=== PATIENT | male | born 1950 | race Caucasian/White ===

== ENCOUNTER 2020-09-13 05:33 | Outpatient (RCR) | payer MEDICARE ==
[~2020-09-13] VITALS: Ht 167.7 cm; Wt 105.5 kg
[~2020-09-13 05:33] MED LIST: AMLO-251 PO; ASPI-808 PO; GLIP10TA13 PO; INSU100I29 SQ; LISI40TA PO; PRAV20TA3 PO; SITA1TBM4 PO; TERA1CAP3 PO; TRIA1TAB3 PO; WARF6TAB49 PO
== END 2020-09-13 09:45 | disposition home or self-care (01) ==
LOC: PREOP 05:33
PROVIDERS: ATTEND Specialist
DX: Z01.818 Encounter for other preprocedural examination (principal); H25.11 Age-related nuclear cataract, right eye; Z20.828 Contact with and (suspected) exposure to other viral communicable diseases
CPT/HCPCS: 87635

== ENCOUNTER 2020-09-14 08:43 | Day surgery (SDC) | payer MEDICARE ==
[~2020-09-14] VITALS: Ht 167.7 cm; Wt 105.5 kg
[2020-09-14 09:25] VITALS: BP 184/101
[2020-09-14] MEDS ORDERED: LIDOCAINE PF 1% 2 ML VIAL IR PRN (09:30)
[2020-09-14] MEDS ORDERED: POVIDONE (BETADINE) OPHTH SOLN 5% 30 ML OP ONE (09:30)
[2020-09-14] MEDS ORDERED: MOXIFLOXACIN OPHTH SOLN 5 MG/ML 0.3 ML SYRINGE OP ONE (09:30)
[2020-09-14] MEDS ORDERED: TIMOLOL MALEATE 0.5% 5 ML (TIMOPTIC) BTL OU PRN (09:30)
[2020-09-14] MEDS: TETRACAINE 0.5% OPHTH SOLN 4 ML BTL (SINGLE DOSE ONLY) OU PRN ×4 (09:31→10:07)
[2020-09-14] MEDS: PHENYLEPHRINE 10% OPHTH (NEO-SYN) 5 ML BTL OU SCH ×3 (09:46→10:07)
[2020-09-14] MEDS: TROPICAMIDE 1% OPH SOLN (MYDRIACYL) 15 ML BTL OP SCH ×3 (09:46→10:07)
--- NOTE | 2020-09-14 10:19 | Ophthalmologist Pre-Op Note ---
Pre-Operative Progress Note H&P Reviewed The H&P was reviewed, patient examined and no changes noted. Date H&P Reviewed: Sep 14, 2020 Time H&P Reviewed: 10:19 Pre-Op Dx Cataract, Right Eye JAIME CORTES MD Sep 14, 2020 10:19
[2020-09-14] MEDS ORDERED: MIDAZOLAM 2 MG/2 ML (VERSED) VIAL ONE (10:20)
--- NOTE | 2020-09-14 10:41 | Ophthalmology Operative Report ---
Cataract removal/placement IOL PREOPERATIVE DIAGNOSIS: Cataract Right Eye POSTOPERATIVE DIAGNOSIS: Cataract Right Eye PROCEDURE: Cataract removal and placement of posterior chamber implant, right eye SURGEON: Vahe Cortes ANESTHESIA: Topical with sedation COMPLICATIONS: None ESTIMATED BLOOD LOSS: Minimal DESCRIPTION OF PROCEDURE: After proper informed consent was obtained, the patient, a 69 male, was taken to the Operating Room and the right eye was anesthetized with tetracaine. The right eye was then prepped and draped in the usual manner. A wire lid speculum was placed. A paracentesis was made at the left hand position. Preservative free lidocaine was injected into the anterior chamber followed by viscoelastic. A clear corneal incision was made in the temporal position. A capsulorrhexis was preformed and the central nuclear and cortical material were removed. The posterior capsule was polished and Roland 21.0 AU00T0 IOL was placed into the capsular bag. The residual viscoelastic was aspirated and balanced saline solution was injected into the anterior chamber. Moxifloxacin was injected into the anterior chamber. The wound was checked and found to be water tight. The patient tolerated the procedure well without complications. VAHE CORTES MD Sep 14, 2020 10:41
[2020-09-14 10:50] VITALS: BP 172/100
[2020-09-14] MEDS ORDERED: acetaZOLAMIDE ER 500 MG CAP (DIAMOX SEQUELS) PO ONE (11:00)
== END 2020-09-14 10:50 | disposition home or self-care (01) ==
LOC: SDC 08:43
PROVIDERS: ATTEND Specialist
DX: H25.11 Age-related nuclear cataract, right eye (principal); I10 Essential (primary) hypertension; E11.36 Type 2 diabetes mellitus with diabetic cataract; M19.90 Unspecified osteoarthritis, unspecified site; Z79.899 Other long term (current) drug therapy; Z88.8 Allergy status to other drugs, medicaments and biological substances
CPT/HCPCS: 66984; 82962; V2632

== ENCOUNTER → 2021-10-30 | Outpatient (CLI) | payer MEDICARE ==
[~2021-10-30] MED LIST changes: -LISI40TA PO; +LISI40TA9 PO
--- NOTE | 2021-10-30 12:08 | Diagnostic Imaging Report ---
Indication: Cough and congestion PA and lateral chest Heart size and pulmonary vascularity are normal. Lungs are clear. There is a tiny left effusion. There is no pneumothorax. IMPRESSION: Tiny left pleural effusion Dictated by: Dictated on workstation # [id number]
== END ==
LOC: RAD FS 11:39
PROVIDERS: ATTEND Nurse Practitioner Family
DX: R05.3 Chronic cough (principal); R09.81 Nasal congestion
CPT/HCPCS: 71046

== ENCOUNTER 2021-11-10 00:45 | Inpatient (IN) | payer MEDICARE ==
[~2021-11-10] VITALS: Ht 175.3 cm; Wt 114.4 kg
[2021-11-10] MEDS ORDERED: AZITHROMYCIN INJECTION 500 MG in NS (IVPB) 250 ML IV SCH (22:45)
[2021-11-11] VITALS (7 sets, daily range): BP systolic 116–168; BP diastolic 70–100
[2021-11-11] MEDS ORDERED: AZITHROMYCIN INJECTION 500 MG/5 ML VIAL ONE (01:02)
[2021-11-11] MEDS ORDERED: NS (IVPB) 250 ML ONE (01:02)
[2021-11-11] MEDS ORDERED: 1/2 NS IV SOLUTION 1,000 ML IV ONE (01:02)
[2021-11-11] MEDS: 1/2 NS IV SOLUTION 1,000 ML IV SCH ×2 (01:07→09:02)
[2021-11-11 01:31] LABS: PHOSPHORUS 3.8 MG/DL (2.3-4.7)
[2021-11-11 01:35] LABS: MAGNESIUM 1.9 MG/DL (1.6-2.4)
[2021-11-11 01:37] LABS: BASOPHILS % (AUTO) 0 % (0-10); EOSINOPHILS % (AUTO) 0 % (0-10); HEMATOCRIT 43 % (40-54); HEMOGLOBIN 13.1 g/dL (13.3-17.7); LYMPHOCYTES # (AUTO) 0.3 10^3/uL (1.0-4.0); LYMPHOCYTES % (AUTO) 2 % (12-44); MEAN CORPUSCULAR HEMOGLOBIN 26 pg (25-34); MEAN CORPUSCULAR HGB CONC 31 g/dL (32-36); MEAN CORPUSCULAR VOLUME 85 fL (80-99); MEAN PLATELET VOLUME 10.7 fL (9.0-12.2); MONOCYTES # (AUTO) 0.1 10^3/uL (0.0-1.0); MONOCYTES % (AUTO) 1 % (0-12); NEUTROPHILS # (AUTO) 10.2 10^3/uL (1.8-7.8); NEUTROPHILS % (AUTO) 96 % (42-75); PLATELET COUNT 298 10^3/uL (130-400); WHITE BLOOD COUNT 10.7 10^3/uL (4.3-11.0)
[2021-11-11 02:05] LABS: LYMPHOCYTES % (MANUAL) 3 %; NEUTROPHILS % (MANUAL) 97 %; RBC MORPH NORMAL
--- NOTE | 2021-11-11 02:19 | Tele-ICU Progress Note ---
Progress Note 70 y/o with SOB x 4 days, productive cough x 1 wk, PCP gave abx for 1 wk, Pt is unvaccinated against COVID-19. Transferred from OSH, PCR pending. mCXR with bilateral infiltrates. ABG PCO2 63--84 1.Acute hypoxic / hypercapnic resp failure Due to COPD and Pneumonia CAP, r/o COVID pneumoni On Bipap, abx, solumedrol and BD nebs given Repeat ABG ordered. No other information available. Will view Pt via camera. Case d/w the bedside nurse. Will call with lab results. Interventions Major-Hypercarbia - evaluation and management, Hypoxemia - evaluation and management Minor-Other: CAP, COPD Annotated By: Suraj Gamez () Date: 11/11/2021 02:17 Some what lethargic but arousable to name , d/w the bedside nurse to call with any change in condition. obese , possible DAMIAN. History based on OSH records. Focused Exam Lactate Level 11/11/21 01:03: Lactic Acid Level 0.71 Height, Weight, BMI Height: '" Weight: lbs. oz. kg; BMI Method: Lactic Acid Level Laboratory Tests Test 11/11/21 01:03 Lactic Acid Level 0.71 MMOL/L (0.50-2.00) SURAJ GAMEZ MD Nov 11, 2021 02:19
[2021-11-11 02:26] LABS: ABG BASE EXCESS 8.8 MMOL/L (-2.5-2.5); ABG OXYGEN SATURATION 92 % (94-100); ABG PO2 66 MMHG (79-93); ABG TCO2 37.8 MMOL/L (21.0-31.0); ALLENS TEST YES-POS; INSPIRED O2 70%; VENTILATOR NO
[2021-11-11 02:33] LABS: ABG PCO2 77 MMHG (35-45); ABG PH 7.28 (7.37-7.43); PATIENT TEMP 36.7
[2021-11-11] MEDS ORDERED: RT-ALBUTEROL HFA 8.5 GM INHALER IH PRN (03:15)
[2021-11-11 05:51] LABS: POTASSIUM 4.7 MMOL/L (3.6-5.0)
[2021-11-11 05:52] LABS: CALCIUM 8.8 MG/DL (8.5-10.1)
[2021-11-11 05:53] LABS: TOTAL PROTEIN 7.8 GM/DL (6.4-8.2)
[2021-11-11 05:55] LABS: BILIRUBIN,TOTAL 0.6 MG/DL (0.1-1.0)
[2021-11-11 05:57] LABS: CREATININE SERUM 1.04 MG/DL (0.60-1.30)
[2021-11-11] MEDS: RT-ALBUTEROL HFA 8.5 GM INHALER IH SCH ×5 (06:56→21:51)
--- NOTE | 2021-11-11 07:08 | Diagnostic Imaging Report ---
EXAM: CHEST 1 VIEW, AP/PA ONLY INDICATION: Pneumonia. COMPARISON: 10/30/2021. FINDINGS: Low lung volumes. Increasing airspace opacities in both lungs, greater on the right. Small left pleural effusion. No pneumothorax. Heart size is obscured. No acute osseous findings. IMPRESSION: Increasing airspace opacities, greater on the right. Stable small left pleural effusion. Dictated by: Dictated on workstation # [id number]
[2021-11-11] MEDS: dexAMETHasone 6 MG TAB (DECADRON) PO SCH (09:02)
[2021-11-11] MEDS ORDERED: LOPERAMIDE 2 MG (IMODIUM) TABLET PO PRN (09:15)
[2021-11-11] MEDS ORDERED: ACETAMINOPHEN 325 MG TABLET PO PRN (09:15)
[2021-11-11] MEDS ORDERED: DOCUSATE SODIUM 100 MG (COLACE) CAP PO PRN (09:15)
[2021-11-11] MEDS ORDERED: MELATONIN 3 MG TABLET PO PRN (09:15)
[2021-11-11] MEDS ORDERED: ONDANSETRON 4 MG (ZOFRAN) ORAL DISSOLVE TAB PO PRN (09:15)
[2021-11-11] MEDS ORDERED: guaiFENesin/CODEINE (ROBITUSSIN AC) 10ML UDC PO PRN (09:15)
[2021-11-11] MEDS ORDERED: CALCIUM CARBONATE 500 MG (TUMS) TAB.CHEW PO PRN (09:15)
[2021-11-11] MEDS ORDERED: HYDROcodone/APAP 5 MG/325 MG (LORTAB) TAB PO PRN (09:15)
[2021-11-11] MEDS ORDERED: ONDANSETRON 4 MG/2 ML (SDV) Z0FRAN IVP PRN (09:15)
[2021-11-11] MEDS ORDERED: diphenhydrAMINE 25 MG TAB (BENADRYL) PO PRN (09:15)
[2021-11-11] MEDS ORDERED: ALPRAZolam 0.25 MG (XANAX) TAB PO PRN (09:15)
[2021-11-11] MEDS: ENOXAPARIN 40 MG/0.4 ML (LOVENOX) SYR SC SCH (10:35)
--- NOTE | 2021-11-11 10:37 | Tele-ICU Progress Note ---
Subjective Date Seen by a Provider: Nov 11, 2021 Time Seen by a Provider: 09:55 Sepsis Event Evaluation Height, Weight, BMI Height: '" Weight: lbs. oz. kg; 37.52 BMI Method: Focused Exam Lactate Level 11/11/21 01:03: Lactic Acid Level 0.71 Exam Exam Patient acknowledged, consented, and participated in this virtual visit which was conducted using real time audio/video Vital Signs Date Time Temp Pulse Resp B/P (MAP) Pulse Ox O2 Delivery O2 Flow Rate FiO2 11/11/21 10:15 86 22 95 45.00 11/11/21 10:00 87 9 137/84 95 NIV Bilevel 70.00 11/11/21 09:44 60.00 11/11/21 09:00 87 9 123/74 94 NIV Bilevel 70.00 11/11/21 08:00 36.4 11/11/21 08:00 89 9 131/67 95 NIV Bilevel 70.00 11/11/21 07:30 85 11/11/21 07:00 86 9 119/67 95 NIV Bilevel 70.00 11/11/21 06:56 84 16 95 70.00 11/11/21 06:00 90 9 133/97 94 NIV Bilevel 70.00 11/11/21 05:00 99 11 141/87 97 NIV Bilevel 70.00 11/11/21 04:00 92 10 133/83 100 NIV Bilevel 70.00 11/11/21 04:00 NIV Bilevel 70 11/11/21 03:02 37.0 84 94 70 11/11/21 03:00 97 11 147/94 93 NIV Bilevel 70.00 11/11/21 02:00 84 15 99/67 91 NIV Bilevel 70.00 11/11/21 01:45 84 28 98/63 91 NIV Bilevel 70.00 11/11/21 01:30 84 25 107/64 91 NIV Bilevel 70.00 11/11/21 01:15 85 29 116/70 91 NIV Bilevel 70.00 11/11/21 01:01 101 17 94 70.00 11/11/21 01:00 94 32 136/82 93 NIV Bilevel 70.00 11/11/21 01:00 92 NIV Bilevel 70 11/11/21 01:00 94 11/11/21 00:58 37.0 96 24 168/100 93 NIV Bilevel 70.00 I & O 11/11/21 07:00 Intake Total 250 ml Output Total 300 ml Balance -50 ml Height & Weight Height: '" Weight: lbs. oz. kg; 37.52 BMI Method: General Appearance: No Apparent Distress Capillary Refill: Less Than 3 Seconds Results Lab Laboratory Tests 11/11/21 01:03 Assessment/Plan Assessment/Plan (Tele-ICU Physician , Progress Note ) Available chart/ vitals / labs / Images reviewed Video assessment done using teleICU camera, rest of exam as per RN Discussed with RN , EXAM PER RN Events overnight : Afebrile FiO2 - I/O = Drips: Pressors: , hemodynamically stable Consultants: Hospital course: (11/10) , Severe Sepsis PNA , covid neg rapid (11/11) from other hospital transfer to [place] direct for PNA on Bipap A/P Acute resp failure - NIPPV to cont - BIPAP 18/8 65% , rr 16 [id number] PIP 18 MV 11L --> abg worse probably due to transport on NRM --> change setting to increase pressutre to 18/09 - follow abg - ddimer negative - low sup for PE - stop IVF AECOPD ? - br-dilators -on decadrone 6 po qd PNA = neg covid -Ceftriiaxone , Z max DM - ISS h/o AC with coumadine as per previous chart - ? indications ( sinus now ) - will check INR - Lines : (Central Line Necessity Reviewed) Brown: OG: Nutrition: Analgesia: Anxiety/ delirium VTE Prophylaxis: mercedes 40 Stress Ulcer Prophylaxis: po Plans in collaboration with bedside consultants and IM MDs. Discussed with RN to reach out if any questions or concerns A total of 33 minutes of critical care time was devoted to this patient today, required to treat and/or prevent further deterioration of critical care condition ( as above) . JJ SPENCE MD Nov 11, 2021 10:37
[2021-11-11] MEDS: inSUlin ASPART (NovoLOG) 1 UNIT/0.01 ML (CHARGE PER UNIT) SC SCH ×3 (10:44→20:21)
--- NOTE | 2021-11-11 11:29 | History & Physical-Hospitalist ---
HARJIT MCKEON 11/11/21 1129: History of Present Illness HPI/Chief Complaint Chief complaint: Rae is a 70yo M who was sent to the hospital this morning by his PCP. He has had a productive cough the past week and shortness of breath the past 4 days. Was treated with oral Abx for about a week with no improvement. He is not vaccinated against COVID and a PCR test is pending currently. A chest X-ray showed bilateral infiltrates. Was admitted for respiratory failure most likely due to COPD exacerbation caused by pneumonia. HPI: PMH includes COPD, diabetes, HTN, high cholesterol, and BPH. Home medications are amlodipine, aspirin, glipizide, insulin detemir, lisinopril, pravastatin, sitagliptin, terazosin, hydochlorothiazide, and warfarin. Patient was not verbally responsive today. Nurse reports the only way to wake her patient is to do a sternal rub several times. The only thing the patient has waken up for was to take his medications. Patient on BIPAP currently. Source: RN/MD, EMS notes reviewed Date Seen 11/11/21 Time Seen by a Provider: 09:30 Attending Physician Tatum Frazier DO [facility] Referring Physician Date of Admission Nov 11, 2021 at 00:46 Home Medications & Allergies Home Medications Reviewed patient Home Medication Reconciliation performed by pharmacy medication reconciliations process maintenance technician and/or nursing. Patients Allergies have been reviewed. Allergies Allergies Coded Allergies rosuvastatin (Verified Allergy, Unknown, 09/12/20) Past Kjymajx-Hapoxy-Zpdjqy Hx Patient Social History Smoking Status: Unknown if Ever Smoked Smokeless Tobacco Frequency: Unknown if Ever Used Use of E-Cig and/or Vaping dev: Unable to obtain Use of E-Cig and/or Vaping David: Unknown if Ever Used Substance use?: Unable to obtain Alcohol Use?: Unable to obtain Pt feels they are or have been: Unable to obtain Current Status Advance Directives: Unable to obtain Communicates: Verbally Primary Language: Upper Sorbian Preferred Spoken Language: Upper Sorbian Is interpretation needed?: No Past Medical History COPD High Cholesterol, Hypertension Benign Prostatic Hyperpl Diabetes, Insulin dep Review of Systems ROS-Unable to Obtain: Patient did not verbally respond during the interview Physical Exam Physical Exam Vital Signs Vital Signs - First Documented 11/11/21 11/11/21 00:58 01:00 Temp 37.0 Pulse 96 Resp 24 B/P (MAP) 168/100 Pulse Ox 93 O2 Delivery NIV Bilevel O2 Flow Rate 70.00 FiO2 70 Capillary Refill : Less Than 3 Seconds Height, Weight, BMI Height: '" Weight: lbs. oz. kg; 37.52 BMI Method: General Appearance: No Apparent Distress, WD/WN Neck: Normal Inspection Respiratory: Chest Non Tender, Lungs Clear Cardiovascular: Regular Rate, Rhythm, No Murmur Gastrointestinal: Normal Bowel Sounds, No Organomegaly Extremity: Normal Capillary Refill, Pedal Edema (Bilateral) Neurologic/Psychiatric: Other (only responsive to sternal rub) Skin: Normal Color, Warm/Dry Lymphatic: No Adenopathy Results Results/Procedures Labs Laboratory Tests 11/11/21 01:03 Patient resulted labs reviewed. Assessment/Plan Admission Diagnosis Admission Status: Inpatient Order (span 2 midnights) Reason for Inpatient Admission: COPD exacerbation due to pneumonia with respiratory failure Assessment and Plan Assessment: COPD exacerbation due to pneumonia Pneumonia Respiratory failure Diabetes HTN High cholesterol BPH Plan: COPD exacerbation due to pneumonia - Continue to take Albuterol - Continue to take Dexamethasone - D-dimer will be assessed Pneumonia - IV Azithromycin treatment will end 11/15 - IV Ceftriaxone added to cover community acquired pneumonia Respiratory failure - Patient on BIPAP - Pending PCR will rule out COVID - Repeat ABG will be done Diabetes - Sliding scale insulin aspart started DVT prophylaxis - Enoxaparin Ulcer prophylaxis - Pantoprazole Diagnosis/Problems Diagnosis/Problems (1) Respiratory failure (2) COPD exacerbation (3) Diabetes (4) Hypertension (5) High cholesterol (6) BPH (benign prostatic hyperplasia) (7) Pneumonia TATUM FRAZIER DO 11/12/21 0523: History of Present Illness HPI/Chief Complaint CC: Acute chronic respiratory failure HPI: 70 yr old WM who had been sick for a couple of weeks presumably from Covid. He presented to [place] with acute hypoxic respiratory failure. He is now BiPAP dependent. PCR is pending for Covid. Community acquired pneumonia was started with Azithromycin and Rocephin. ABG is 7./. Overall he will be monitored closely for any need for intubation. Source: RN/MD, EMS notes reviewed Past Rpqvbkn-Trltxm-Nodnqs Hx Patient Social History Marrital Status: Employed/Student: retired Use of E-Cig and/or Vaping David: Unknown if Ever Used Past Medical History COPD High Cholesterol, Hypertension Benign Prostatic Hyperpl Diabetes, Insulin dep Review of Systems Constitutional: see HPI Physical Exam Physical Exam General Appearance: No Apparent Distress, Chronically ill, Obese, Other (BiPAP intact) Respiratory: Lungs Clear, Normal Breath Sounds Cardiovascular: Regular Rate, Rhythm Neurologic/Psychiatric: Alert, Oriented x3 Assessment/Plan Admission Diagnosis Assessment: Community-acquired pneumonia Acute hypoxic respiratory failure BiPAP dependence Hypercapnia Hypertension Plan: Antibiotics BiPAP Monitor ABG Admission Status: Inpatient Order (span 2 midnights) Reason for Inpatient Admission: Respiratory failure Supervisory-Addendum Brief Verification & Attestation Participated in pt care: history, MDM, physical Personally performed: exam, history, MDM, supervision of care Care discussed with: Medical Student Procedures: n/a Results interpretation: Verified all documentation Verification and Attestation of Medical Student E/M Service A medical student performed and documented this service in my presence. I reviewed and verified all information documented by the medical student and made modifications to such information, when appropriate. I personally performed the physical exam and medical decision making. Tatum Frazier, Nov 12, 2021,05:23 HARJIT MCKEON Nov 11, 2021 11:29 TATUM FRAZIER DO Nov 12, 2021 05:23
--- NOTE | 2021-11-11 12:30 | Progress Note ---
Subjective Date Seen by a Provider: Nov 11, 2021 Time Seen by a Provider: 12:20 Subjective/Events-last exam Pt a little more alert compared to reports this morning from nursing staff - can't unstand pt with BiPAP on but he is able to response yes/no and give relevant hand-gestures to my questions. COVID PCR still pendings. Review of Systems General: No Chills, No Night Sweats Pulmonary: Dyspnea, Pleuritic Chest Pain Cardiovascular: Chest Pain ('a little bit'); No: Edema, Lt Headedness Gastrointestinal: No: Nausea, Vomiting Focused Exam Lactate Level 11/11/21 01:03: Lactic Acid Level 0.71 Objective Exam Last Set of Vital Signs Vital Signs Date Time Temp Pulse Resp B/P (MAP) Pulse Ox O2 Delivery O2 Flow Rate FiO2 11/11/21 12:00 84 23 107/63 91 NIV Bilevel 70.00 11/11/21 08:00 36.4 11/11/21 04:00 70 Capillary Refill : Less Than 3 Seconds General: Alert, Cooperative, No Acute Distress HEENT: EOMI, Mucous Memb Moist/[place] Lungs: Other (pt has restricted air movement, little bit of wheezing, no crackles ) Heart: Regular Rate, No Murmurs Abdomen: Normal Bowel Sounds, Soft Extremities: No Clubbing, No Cyanosis, Normal Pulses Results Lab Laboratory Tests 11/11/21 01:03: White Blood Count 10.7, Red Blood Count 4.99, Hemoglobin 13.1L, Hematocrit 43, Mean Corpuscular Volume 85, Mean Corpuscular Hemoglobin 26, Mean Corpuscular Hemoglobin Concent 31L, Red Cell Distribution Width 14.5, Platelet Count 298, Mean Platelet Volume 10.7, Immature Granulocyte % (Auto) 1, Neutrophils (%) (Auto) 96H, Lymphocytes (%) (Auto) 2L, Monocytes (%) (Auto) 1, Eosinophils (%) (Auto) 0, Basophils (%) (Auto) 0, Neutrophils # (Auto) 10.2H, Lymphocytes # (Auto) 0.3L, Monocytes # (Auto) 0.1, Eosinophils # (Auto) 0.0, Basophils # (A uto) 0.0, Immature Granulocyte # (Auto) 0.1, Neutrophils % (Manual) 97, Lymphocytes % (Manual) 3, Blood Morphology Comment NORMAL, D-Dimer <= 0.27, Sodium Level 138, Potassium Level 4.7, Chloride Level 97L, Carbon Dioxide Level 24, Anion Gap 17H, Blood Urea Nitrogen 19H, Creatinine 1.04, Estimat Glomerular Filtration Rate 78, BUN/Creatinine Ratio 18, Glucose Level 268H, Lactic Acid Level 0.71, Calcium Level 8.8, Corrected Calcium 8.8, Phosphorus Level 3.8, Magnesium Level 1.9, Total Bilirubin 0.6, Aspartate Amino Transf (AST/SGOT) 16, Alanine Aminotransferase (ALT/SGPT) 20, Alkaline Phosphatase 60, Total Protein 7.8, Albumin 4.0 11/11/21 01:08: Glucometer 250H 11/11/21 02:20: Blood Gas Puncture Site LEFT RADIAL, Blood Gas Patient Temperature 36.7, Arterial Blood pH 7.28*L, Arterial Blood Partial Pressure CO2 77*H, Arterial Blood Partial Pressure O2 66L, Arterial Blood HCO3 35H, Arterial Blood Total CO2 37.8H, Arterial Blood Oxygen Saturation 92L, Arterial Blood Base Excess 8.8H, [place]ano Test YES-POS, Blood Gas Ventilator Setting NO, Blood Gas Inspired Oxygen 70% 11/11/21 06:07: Glucometer 290H 11/11/21 10:40: Glucometer 212H Assessment/Plan Assessment/Plan Assess & Plan/Chief Complaint Acute hypoxic and hypercapnic respiratory failure COPD (no baseline O2 req) Etiology: COPD exacerbation from bacterial PNA Vs Covid-19 PNA. 11/11 CXR showes b/l infiltrates Pt has not recieved COVID or flu vaccines. ABG apon arrival: 7.25/77/66/35 CVD rapid test neg, PCR still pending - airborne precautions currently. BiPAP settings changes from 18/8 65% to 22/12 65% this am. Repeat ABG. Ceftriaxone + azithromycin (Day 1) s/p solumedrol in ER, on 6mg QD decadron currently. Warfarin listed in ambulatory med list - unknown why? PT/INR ordered. IDDM HTN SSI and accuchecks GI ppx: start 20 pepcid DVT ppx: 40 lovenox. Lines and tubes: PIV + Brown cath in place. SONY CARCAMO MED STUDENT Nov 11, 2021 12:30
[2021-11-11] MEDS ORDERED: WRF1T PO (13:29)
[2021-11-11] MEDS ORDERED: WARF7.5T3 PO (13:29)
[2021-11-11] MEDS ORDERED: ALBU18HF2 INH (13:29)
[2021-11-11 14:24] LABS: ABG BASE EXCESS 9.8 MMOL/L (-2.5-2.5); ABG OXYGEN SATURATION 96 % (94-100); ABG PCO2 66 MMHG (35-45); ABG PH 7.35 (7.37-7.43); ABG PO2 78 MMHG (79-93); ABG TCO2 37.6 MMOL/L (21.0-31.0); ALLENS TEST YES-POS; INSPIRED O2 70%; VENTILATOR NO
[2021-11-11 14:25] LABS: PATIENT TEMP 36.7
--- NOTE | 2021-11-11 15:54 | Pulmonary Consultation ---
History of Present Illness History of Present Illness Date Seen by Provider: Nov 11, 2021 Time Seen by Provider: 15:42 Date of Admission 70 M with COPD, PNA RLL, on IV Rocephin and azithromycin, Medrol requiring BIPAP 18/8 with 70% FiO2 last ABG a few hours ago 7. Not working hard to breathe Not coughing much, no hemoptysis rapid COVID is negative await PCR Allergies and Home Medications Allergies Coded Allergies: rosuvastatin (Verified Allergy, Unknown, 09/12/20) Home Medications Albuterol Sulfate 18 Gm Hfa.aer.ad, 2 PUFF INH Q6H PRN for SHORTNESS OF BREATH, (Reported) Amlodipine Besylate 10 Mg Tablet, 10 MG PO HS, (Reported) Aspirin 325 Mg Tablet, 325 MG PO DAILY, (Reported) Glipizide 10 Mg Tablet, 10 MG PO DAILY, (Reported) Lisinopril 40 Mg Tablet, 40 MG PO HS, (Reported) Pravastatin Sodium 20 Mg Tablet, 20 MG PO HS, (Reported) Sitagliptin Phos/Metformin HCl 1 Each Tbmp.24hr, 2 EACH PO HS, (Reported) Terazosin HCl 1 Mg Capsule, 1 MG PO HS, (Reported) Triamterene/Hydrochlorothiazid 1 Each Tablet, 1 EACH PO DAILY, (Reported) Warfarin Sodium 1 Mg Tablet, 1 MG PO HS, (Reported) TAKES 1MG +7.5MG TOGETHER TO EQUAL 8.5MG Warfarin Sodium 7.5 Mg Tablet, 7.5 MG PO HS, (Reported) TAKES 1MG +7.5MG TOGETHER TO EQUAL 8.5MG Past Medical/Social/Family Hx Patient Social History Smoking Status: Unknown if Ever Smoked Smokeless Tobacco Frequency: Unknown if Ever Used Use of E-Cig and/or Vaping dev: Unable to obtain E-Cig and/or Vaping Freq: Unknown if Ever Used Substance use?: Unable to obtain Alcohol Use?: Unable to obtain Pt stated abuse/neglect: Unable to obtain Immunizations Up To Date Influenza Vaccine Up-to-Date: No; Not Current Current Status Advance Directives: Unable to obtain Communicates: Verbally Primary Language: Palauan Preferred Spoken Language: Palauan Is interpretation needed?: No Review of Systems Constitutional: see HPI EENTM: see HPI Respiratory: see HPI Cardiovascular: see HPI Gastrointestinal: see HPI Genitourinary: see HPI Musculoskeletal: see HPI Skin: see HPI Psychiatric/Neurological: See HPI Sepsis Event Evaluation Height, Weight, BMI Height: '" Weight: lbs. oz. kg; 37.52 BMI Method: Exam Exam Patient acknowledged, consented, and participated in this virtual visit which was conducted using real time audio/video Vital Signs Date Time Temp Pulse Resp B/P (MAP) Pulse Ox O2 Delivery O2 Flow Rate FiO2 11/11/21 14:59 81 22 96 35.00 11/11/21 14:00 45.00 11/11/21 14:00 90 23 193/182 94 NIV Bilevel 70.00 11/11/21 13:00 93 23 116/95 91 NIV Bilevel 70.00 11/11/21 13:00 93 11/11/21 12:00 84 23 107/63 91 NIV Bilevel 70.00 11/11/21 12:00 36.7 11/11/21 11:00 90 16 120/67 93 NIV Bilevel 70.00 11/11/21 10:15 86 22 95 45.00 11/11/21 10:00 87 9 137/84 95 NIV Bilevel 70.00 11/11/21 09:44 60.00 11/11/21 09:00 87 9 123/74 94 NIV Bilevel 70.00 11/11/21 08:00 36.4 11/11/21 08:00 89 9 131/67 95 NIV Bilevel 70.00 11/11/21 07:30 85 11/11/21 07:00 86 9 119/67 95 NIV Bilevel 70.00 11/11/21 06:56 84 16 95 70.00 11/11/21 06:00 90 9 133/97 94 NIV Bilevel 70.00 11/11/21 05:00 99 11 141/87 97 NIV Bilevel 70.00 11/11/21 04:00 92 10 133/83 100 NIV Bilevel 70.00 11/11/21 04:00 NIV Bilevel 70 11/11/21 03:02 37.0 84 94 70 11/11/21 03:00 97 11 147/94 93 NIV Bilevel 70.00 11/11/21 02:00 84 15 99/67 91 NIV Bilevel 70.00 11/11/21 01:45 84 28 98/63 91 NIV Bilevel 70.00 11/11/21 01:30 84 25 107/64 91 NIV Bilevel 70.00 11/11/21 01:15 85 29 116/70 91 NIV Bilevel 70.00 11/11/21 01:01 101 17 94 70.00 11/11/21 01:00 94 32 136/82 93 NIV Bilevel 70.00 11/11/21 01:00 92 NIV Bilevel 70 11/11/21 01:00 94 11/11/21 00:58 37.0 96 24 168/100 93 NIV Bilevel 70.00 I & O 11/11/21 07:00 Intake Total 250 ml Output Total 300 ml Balance -50 ml Height & Weight Height: '" Weight: lbs. oz. kg; 37.52 BMI Method: General Appearance: No Apparent Distress, WD/WN Neck: Normal Inspection Respiratory: Chest Non Tender, Lungs Clear, Decreased Breath Sounds (very decreased BS) Cardiovascular: Regular Rate, Rhythm, No Murmur Capillary Refill: Less Than 3 Seconds Gastrointestinal: normal bowel sounds (mild distensionKeysto) Extremity: Normal Capillary Refill, Pedal Edema (Bilateral+2) Neurologic/Psychiatric: Other (only responsive to sternal rub) Skin: Normal Color, Warm/Dry Lymphatic: No Adenopathy Results Lab Laboratory Tests 11/11/21 01:03 Assessment/Plan Assessment/Plan AECOPD, PNA, will continue abx and steroids, can switch to vapotherm since pCO2 is better Critical Care: Critically Ill Patient Time spent with patient (mins): 25 DIANDRA WALDEN MD Nov 11, 2021 15:54
[2021-11-11] MEDS: AZITHROMYCIN INJECTION 500 MG in NS (IVPB) 250 ML IV SCH (20:22)
[2021-11-11] MEDS: SENNA W/DOCUSATE (SENOKOT S) TABLET PO SCH (20:22)
[2021-11-11] MEDS: cefTRIAXone 1 GM PRE-MIX 50 ML IV SCH (20:22)
[2021-11-12 02:58] VITALS: BP 130/79
[2021-11-12] MEDS: RT-ALBUTEROL HFA 8.5 GM INHALER IH SCH ×6 (02:58→22:39)
[2021-11-12 05:11] LABS: BASOPHILS % (AUTO) 0 % (0-10); EOSINOPHILS % (AUTO) 0 % (0-10); HEMATOCRIT 40 % (40-54); HEMOGLOBIN 12.2 g/dL (13.3-17.7); LYMPHOCYTES # (AUTO) 0.9 10^3/uL (1.0-4.0); LYMPHOCYTES % (AUTO) 9 % (12-44); MEAN CORPUSCULAR HEMOGLOBIN 26 pg (25-34); MEAN CORPUSCULAR HGB CONC 31 g/dL (32-36); MEAN CORPUSCULAR VOLUME 86 fL (80-99); MEAN PLATELET VOLUME 10.8 fL (9.0-12.2); MONOCYTES # (AUTO) 0.8 10^3/uL (0.0-1.0); MONOCYTES % (AUTO) 8 % (0-12); NEUTROPHILS # (AUTO) 8.3 10^3/uL (1.8-7.8); NEUTROPHILS % (AUTO) 82 % (42-75); PLATELET COUNT 320 10^3/uL (130-400); WHITE BLOOD COUNT 10.1 10^3/uL (4.3-11.0)
[2021-11-12 05:18] LABS: ALBUMIN 3.3 GM/DL (3.2-4.5)
[2021-11-12 05:19] LABS: POTASSIUM 4.1 MMOL/L (3.6-5.0)
[2021-11-12 05:20] LABS: CALCIUM 8.4 MG/DL (8.5-10.1)
[2021-11-12 05:21] LABS: TOTAL PROTEIN 6.6 GM/DL (6.4-8.2)
[2021-11-12 05:23] LABS: BILIRUBIN,TOTAL 0.4 MG/DL (0.1-1.0)
[2021-11-12 05:24] LABS: PHOSPHORUS 2.6 MG/DL (2.3-4.7)
[2021-11-12 05:25] LABS: CREATININE SERUM 1.08 MG/DL (0.60-1.30)
[2021-11-12 05:27] LABS: MAGNESIUM 2.1 MG/DL (1.6-2.4)
[2021-11-12 05:33] LABS: INR 1.5 (0.8-1.4); PROTHROMBIN TIME PATIENT 18.5 SEC (12.2-14.7)
[2021-11-12] MEDS: inSUlin ASPART (NovoLOG) 1 UNIT/0.01 ML (CHARGE PER UNIT) SC SCH ×5 (05:51→21:23)
[2021-11-12] MEDS: dexAMETHasone 6 MG TAB (DECADRON) PO SCH (06:28)
[2021-11-12 07:21] VITALS: BP 127/84
[2021-11-12] MEDS: ENOXAPARIN 40 MG/0.4 ML (LOVENOX) SYR SC SCH (08:27)
[2021-11-12] MEDS: SENNA W/DOCUSATE (SENOKOT S) TABLET PO SCH ×2 (09:00→20:14)
--- NOTE | 2021-11-12 11:03 | Progress Note - Hospitalist ---
HARJIT MCKEON 11/12/21 1103: Subjective HPI/CC On Admission Date Seen by Provider: Nov 12, 2021 Time Seen by Provider: 09:15 CC: Acute chronic respiratory failure HPI: 70 yr old WM who had been sick for a couple of weeks presumably from Covid. He presented to [facility] with acute hypoxic respiratory failure. He is now BiPAP dependent. PCR is pending for Covid. Community acquired pneumonia was started with Azithromycin and Rocephin. ABG is 7.28/77/66. Overall he will be monitored closely for any need for intubation. Subjective/Events-last exam Rae was awake and talking during the interview today. Did not have any concerns or questions. Stated that he was feeling much better today. Tried vapotherm because his CO2 levels had improved but he felt that vapotherm was uncomfortable and preferred using BIPAP. BIPAP settings today are 22/12 35%. His COVID PCR test came back negative and he was taken out of isolation. Patient was asked why he is on Warfarin and he stated it is because he had a brain clot years ago. INR was done and came back 1.5. Review of Systems General: No Chills; Fatigue HEENT: No Head Aches, No Visual Changes Pulmonary: No Cough Cardiovascular: No: Chest Pain, Palpitations Gastrointestinal: No: Nausea, Vomiting, Diarrhea, Constipation Genitourinary: No Dysuria Neurological: Weakness Focused Exam Lactate Level 11/11/21 01:03: Lactic Acid Level 0.71 Objective Exam Vital Signs Vital Signs Date Time Temp Pulse Resp B/P (MAP) Pulse Ox O2 Delivery O2 Flow Rate FiO2 11/12/21 11:22 73 22 94 35.00 11/12/21 10:00 143/99 NIV Bilevel 11/12/21 08:00 36.0 11/12/21 04:00 35 Capillary Refill : Less Than 3 Seconds General Appearance: No Apparent Distress, WD/WN HEENT: PERRL/EOMI Neck: Full Range of Motion, Normal Inspection, Non Tender, Supple Respiratory: Chest Non Tender, Lungs Clear, Normal Breath Sounds, No Accessory Muscle Use, No Respiratory Distress Cardiovascular: Regular Rate, Rhythm, No Gallop, No JVD, No Murmur, Normal Peripheral Pulses Gastrointestinal: Normal Bowel Sounds, No Organomegaly, No Pulsatile Mass, Non Tender, Soft Extremity: Normal Capillary Refill, Normal Inspection, Normal Range of Motion, Non Tender, Pedal Edema Neurologic/Psychiatric: Alert, Oriented x3, Normal Mood/Affect Skin: Normal Color, Warm/Dry Results/Procedures Lab Laboratory Tests 11/12/21 04:33 Patient resulted labs reviewed. Assessment/Plan Assessment and Plan Assess & Plan/Chief Complaint Assessment: COPD exacerbation due to pneumonia Pneumonia Respiratory failure Diabetes HTN High cholesterol BPH Plan: COPD exacerbation due to pneumonia - Continue to take Albuterol - Continue to take Dexamethasone - D-dimer was WNL - Patient stable and able to be transferred to the medical-surgical unit Pneumonia - Day 2 of IV Azithromycin and treatment will end 11/15 - Day 2 IV Ceftriaxone and treatment will end 11/16 Respiratory failure - Patient on BIPAP 18/09 35% - COVID has been ruled out as a cause - ABG improved 7.35 - Patient is assumed to have DAMIAN, will need to have a sleep study done Diabetes - Sliding scale insulin aspart - Glipizide restarted from home medications HTN - Hydrochlorothiazide restarted from home medications - Lisinopril restarted from home medications - Amlodipine restarted from home medications High cholesterol - Simvastatin restarted from home medications BPH -Terazosin restarted from home medications DVT prophylaxis - Enoxaparin - Warfarin restarted from home medications Ulcer prophylaxis - Pantoprazole Diagnosis/Problems Diagnosis/Problems (1) Respiratory failure (2) COPD exacerbation (3) Diabetes (4) Hypertension (5) High cholesterol (6) BPH (benign prostatic hyperplasia) (7) Pneumonia TATUM DON DO 11/13/21 0549: Subjective Subjective/Events-last exam Pt is doing a lot better Transferring to the floor BiPAP dependent Diet with Ensure will be started Covid was negative so pt was taken out of isolation Review of Systems General: Fatigue Pulmonary: Dyspnea Objective Exam General Appearance: No Apparent Distress, WD/WN, Anxious, Chronically ill, Obese Respiratory: Lungs Clear, Normal Breath Sounds Cardiovascular: Regular Rate, Rhythm Neurologic/Psychiatric: Alert, Oriented x3 Assessment/Plan Assessment and Plan Assess & Plan/Chief Complaint BiPAP dependent Moved to floor Supervisory-Addendum Brief Verification & Attestation Participated in pt care: history, MDM, physical Personally performed: exam, history, MDM, supervision of care Care discussed with: Medical Student Procedures: n/a Results interpretation: Verified all documentation Verification and Attestation of Medical Student E/M Service A medical student performed and documented this service in my presence. I reviewed and verified all information documented by the medical student and made modifications to such information, when appropriate. I personally performed the physical exam and medical decision making. Tatum Don, Nov 13, 2021,05:49 HARJIT MCKEON Nov 12, 2021 11:03 TATUM DON DO Nov 13, 2021 05:49
[2021-11-12 11:22] VITALS: BP 142/91
--- NOTE | 2021-11-12 12:21 | Tele-ICU Progress Note ---
Subjective Date Seen by a Provider: Nov 12, 2021 Time Seen by a Provider: 12:20 Sepsis Event Evaluation Height, Weight, BMI Height: '" Weight: lbs. oz. kg; 37.52 BMI Method: Focused Exam Lactate Level 11/11/21 01:03: Lactic Acid Level 0.71 Exam Exam Patient acknowledged, consented, and participated in this virtual visit which was conducted using real time audio/video Vital Signs Date Time Temp Pulse Resp B/P (MAP) Pulse Ox O2 Delivery O2 Flow Rate FiO2 11/12/21 11:22 73 22 94 35.00 11/12/21 10:00 71 19 143/99 95 NIV Bilevel 35.00 11/12/21 09:00 70 19 141/90 93 NIV Bilevel 35.00 11/12/21 08:00 77 10 137/89 93 NIV Bilevel 35.00 11/12/21 08:00 36.0 11/12/21 07:21 75 22 92 35.00 11/12/21 07:00 73 127/84 93 NIV Bilevel 35.00 11/12/21 07:00 73 11/12/21 06:00 73 126/83 91 NIV Bilevel 35.00 11/12/21 05:00 76 8 141/93 93 NIV Bilevel 35.00 11/12/21 04:00 74 12 130/79 91 NIV Bilevel 35.00 11/12/21 04:00 NIV Bilevel 35 11/12/21 04:00 36.1 11/12/21 03:00 73 132/84 93 NIV Bilevel 35.00 11/12/21 02:58 73 20 93 35.00 11/12/21 02:00 74 18 130/79 92 NIV Bilevel 35.00 11/12/21 01:00 76 11/12/21 01:00 66 9 125/77 93 NIV Bilevel 35.00 11/12/21 00:00 36.4 NIV Bilevel 35.00 11/12/21 00:00 73 21 121/75 93 NIV Bilevel 35.00 11/11/21 23:59 NIV Bilevel 35 11/11/21 23:00 81 20 125/82 93 NIV Bilevel 35.00 11/11/21 22:00 81 21 129/83 94 NIV Bilevel 35.00 11/11/21 21:51 87 20 95 35.00 11/11/21 21:00 84 14 127/85 95 NIV Bilevel 35.00 11/11/21 20:23 36.2 NIV Bilevel 35.00 11/11/21 20:00 80 20 133/84 93 NIV Bilevel 45.00 11/11/21 20:00 NIV Bilevel 35 11/11/21 19:00 85 12 136/93 93 NIV Bilevel 45.00 11/11/21 19:00 85 11/11/21 18:45 85 20 95 35.00 11/11/21 18:00 88 17 149/87 93 NIV Bilevel 45.00 11/11/21 17:21 36.4 11/11/21 17:00 87 12 141/86 94 NIV Bilevel 45.00 11/11/21 16:00 78 19 124/73 90 NIV Bilevel 45.00 11/11/21 15:41 NIV Bilevel 45 11/11/21 15:00 80 17 130/79 96 NIV Bilevel 45.00 11/11/21 14:59 81 22 96 35.00 11/11/21 14:00 45.00 11/11/21 14:00 90 23 193/182 94 NIV Bilevel 70.00 11/11/21 13:00 93 23 116/95 91 NIV Bilevel 70.00 11/11/21 13:00 93 I & O 11/12/21 07:00 Intake Total 1350 ml Output Total 675 ml Balance 675 ml Height & Weight Height: '" Weight: lbs. oz. kg; 37.52 BMI Method: General Appearance: No Apparent Distress, WD/WN HEENT: PERRL/EOMI Neck: Full Range of Motion, Normal Inspection, Non Tender, Supple Respiratory: Chest Non Tender, Lungs Clear, Normal Breath Sounds, No Accessory Muscle Use, No Respiratory Distress Cardiovascular: Regular Rate, Rhythm, No Gallop, No JVD, No Murmur, Normal Peripheral Pulses Capillary Refill: Less Than 3 Seconds Gastrointestinal: normal bowel sounds (mild distensionKeysto) Extremity: Normal Capillary Refill, Normal Inspection, Normal Range of Motion, Non Tender, Pedal Edema Neurologic/Psychiatric: Alert, Oriented x3, Normal Mood/Affect Skin: Normal Color, Warm/Dry Lymphatic: No Adenopathy Results Lab Laboratory Tests 11/11/21 01:03 11/12/21 04:33 Assessment/Plan Assessment/Plan (Tele-ICU Physician , Progress Note ) Available chart/ vitals / labs / Images reviewed Video assessment done using teleICU camera, rest of exam as per RN Discussed with RN , EXAM PER RN Events overnight : Afebrile FiO2 - 35% I/O = pos 400 Drips: Pressors: , hemodynamically stable Consultants: Hospital course: (11/10) , Severe Sepsis PNA , covid neg rapid (11/11) from other hospital transfer to [facility] direct for PNA on Bipap 18/09 70% A/P Acute resp failure - BIPAP 35% rr 22 tv 500 - on 5 l NC - ddimer negative , INR 1.5 - low susp for PE - stoped IVF 11/11 AECOPD ? - br-dilators -on decadrone 6 po qd - as per PCP PNA = neg covid rapid -Ceftriiaxone , Z max DM - ISS h/o AC with coumadine as per previous chart - ? indications ( sinus now ) - INR 1.5 Lines : (Central Line Necessity Reviewed) Brown: OG: Nutrition: Analgesia: Anxiety/ delirium VTE Prophylaxis: mercedes 40 Stress Ulcer Prophylaxis: po Plans in collaboration with bedside consultants and IM MDs. Discussed with RN to reach out if any questions or concerns A total of 31 minutes of critical care time was devoted to this patient today, required to treat and/or prevent further deterioration of critical care condition ( as above) JJ SPENCE MD Nov 12, 2021 12:20
[2021-11-12] MEDS: cefTRIAXone 1 GM PRE-MIX 50 ML IV SCH (20:02)
[2021-11-12] MEDS ORDERED: [UNRECOGNIZED DRUG - OTHER] PO SCH (21:00)
[2021-11-12] MEDS ORDERED: METFORMIN HCL PO SCH (21:00)
[2021-11-12] MEDS ORDERED: SITAGLIPTIN PHOS PO SCH (21:00)
[2021-11-12] MEDS: AZITHROMYCIN INJECTION 500 MG in NS (IVPB) 250 ML IV SCH (21:15)
[2021-11-12] MEDS: SIMvastatin 10 MG (ZOCOR) TAB PO SCH (21:17)
[2021-11-12] MEDS: warFARin 1 MG (COUMADIN) TAB PO SCH (21:17)
[2021-11-12] MEDS: warFARin 7.5 MG (COUMADIN) TAB PO SCH (21:17)
[2021-11-12] MEDS: lisINopril 40 MG (PRINIVIL) TABLET PO SCH (21:17)
[2021-11-12] MEDS: amLODIPine 10 MG (NORVASC) TAB PO SCH (21:17)
[2021-11-12] MEDS: TERAZOSIN 1 MG CAP (HYTRIN) PO SCH (21:17)
[2021-11-12 22:39] VITALS: BP 142/91
[2021-11-13 03:02] VITALS: BP 142/91
[2021-11-13] MEDS: RT-ALBUTEROL HFA 8.5 GM INHALER IH SCH ×6 (03:02→21:16)
[2021-11-13] MEDS: dexAMETHasone 6 MG TAB (DECADRON) PO SCH (06:00)
[2021-11-13] MEDS: inSUlin ASPART (NovoLOG) 1 UNIT/0.01 ML (CHARGE PER UNIT) SC SCH ×4 (06:00→20:49)
[2021-11-13 06:13] LABS: BASOPHILS % (AUTO) 0 % (0-10); EOSINOPHILS # (AUTO) 0.1 10^3/uL (0.0-0.3); EOSINOPHILS % (AUTO) 1 % (0-10); HEMATOCRIT 38 % (40-54); HEMOGLOBIN 11.3 g/dL (13.3-17.7); LYMPHOCYTES # (AUTO) 1.1 10^3/uL (1.0-4.0); LYMPHOCYTES % (AUTO) 16 % (12-44); MEAN CORPUSCULAR HEMOGLOBIN 26 pg (25-34); MEAN CORPUSCULAR HGB CONC 30 g/dL (32-36); MEAN CORPUSCULAR VOLUME 87 fL (80-99); MEAN PLATELET VOLUME 10.3 fL (9.0-12.2); MONOCYTES # (AUTO) 0.8 10^3/uL (0.0-1.0); MONOCYTES % (AUTO) 11 % (0-12); NEUTROPHILS # (AUTO) 4.9 10^3/uL (1.8-7.8); NEUTROPHILS % (AUTO) 72 % (42-75); PLATELET COUNT 293 10^3/uL (130-400); WHITE BLOOD COUNT 6.9 10^3/uL (4.3-11.0)
[2021-11-13 06:22] LABS: INR 1.3 (0.8-1.4); PROTHROMBIN TIME PATIENT 16.2 SEC (12.2-14.7)
[2021-11-13 06:29] LABS: ALBUMIN 3.2 GM/DL (3.2-4.5); BILIRUBIN,TOTAL 0.6 MG/DL (0.1-1.0); CALCIUM 8.5 MG/DL (8.5-10.1); CREATININE SERUM 1.21 MG/DL (0.60-1.30); POTASSIUM 3.7 MMOL/L (3.6-5.0); TOTAL PROTEIN 6.5 GM/DL (6.4-8.2)
[2021-11-13 07:45] LABS: ABG BASE EXCESS 10.7 MMOL/L (-2.5-2.5); ABG OXYGEN SATURATION 98 % (94-100); ABG PCO2 59 MMHG (35-45); ABG PO2 89 MMHG (79-93); ABG TCO2 37.9 MMOL/L (21.0-31.0)
[2021-11-13 07:50] LABS: ALLENS TEST YES-POS; INSPIRED O2 35%; PATIENT TEMP 36.2; VENTILATOR NO
[2021-11-13] MEDS: SENNA W/DOCUSATE (SENOKOT S) TABLET PO SCH ×2 (08:33→20:12)
[2021-11-13] MEDS: TRIAMTERENE/HCTZ 75-50 (MAXZIDE,DYAZIDE) TABLET PO SCH (08:45)
[2021-11-13] MEDS: ASPIRIN 325 MG (5 GR) TABLET PO SCH (08:45)
[2021-11-13] MEDS: ENOXAPARIN 40 MG/0.4 ML (LOVENOX) SYR SC SCH (08:46)
[2021-11-13] MEDS: glipiZIDE 5 MG (GLUCOTROL) TAB PO SCH (08:46)
--- NOTE | 2021-11-13 14:09 | Occupational Therapy Eval ---
OT Evaluation-General/PLF Medical Diagnosis Admission Date Nov 11, 2021 at 00:46 Medical Diagnosis: resp failure 2/2 COPD exacerbation Onset Date: Nov 11, 2021 Therapy Diagnosis Therapy Diagnosis: reduced adl status Precautions Precautions/Isolations: Fall Prevention, Standard Precautions Referral Referral Reason: Evaluation/Treatment Medical History Current History Pt presents to ER with productive cough and SOB. Found to be in respiratory failure most likely due to COPD exacerbation. Pt reports he lives with his in a multilevel home but able to stay on the main level. His assists with adls but pt reports that he can do them if needed, his just likes to help him. His reports that she helps pt in/out of tub as he will sit down in the tub. He does not wear socks only shoes. He was not using any AD prior to admission. Social History Home: Multilevel Current Living Status: Spouse ADL-Prior Level of Function SCALE: Activities may be completed with or without assistive devices. 0-Kblggjqzky-lltwzdn completes the activity by him/herself with no assistance from a helper. 5-Set-up or Clean-up Assistance-helper sets up or cleans up; patient completes activity. [place] assists only prior to or following the activity. 4-Supervision or Touching Assistance-helper provides verbal cues and/or touching/steadying and/or contact guard assistance as patient completes activity. Assistance may be provided throughout the activity or intermittently. 3-Partial/Moderate Assistance-helper does LESS THAN HALF the effort. [place] lifts, holds or supports trunk or limbs, but provides less than half the effort. 2-Substantial/Maximal Assistance-helper does MORE THAN HALF the effort. [place] lifts or holds trunk or limbs and provides more than half the effort. 7-Yduadigxf-wihwas does ALL the effort. Patient does none of the effort to complete the activity. Or, the assistance of 2 or more helpers is required for the patient to complete the activity. If activity was not attempted, code reason: 7-Patient Refused. 9-Not Applicable-not attempted and the patient did not perform the activity before the current illness, exacerbation or injury. 10-Not Attempted due to Environmental Limitations-(lack of equipment, weather restraints, etc.). 88-Not Attempted due to Medical Conditions or Safety Concerns. Self Care: Needed Some Help Functional Cognition: Needed Some Help DME/Equipment: Grab Bars, Tub/Shower OT Current Status Subjective Pt denies pain, agreeable to treatment. Appearance Returned to supine in bed, all needs within reach. in room. Mental Status/Objective Patient Orientation: Person, Place, Situation Attachments: Bui Catheter, IV, Oxygen Current Hand Dominance: Right Upper Extremity ROM WNL Upper Extremity Strength WNL ADL-Treatment Eating (QC): 6 Lower Body Dressing (QC): 4 (CGA) Toileting Hygiene (QC): 1 (bui catheter) Supine<>sit: SBA. Cues for improved performance as pt demonstrates increased effort and SOB with task. He was able to don pants onto feet with extra effort. Education and cues on energy conservation and PLB as pt appears to be holding breath when reaching for feet. He stood with CGA to pull clothing over hips. BLE's trembling, improves slightly with change in WANDA. Pt fatigues easily with minimal activity. Pt currently on 4L, does not wear oxygen at baseline. reports she can assist as needed at home. Education OT Patient Education: Correct positioning, Energy conservation, Progress toward Goal/Update tx plan, Purpose of tx/functional activities, Rehab process, Safety issues, Transfer techniques Teaching Recipient: Patient, Family Teaching Methods: Discussion Response to Teaching: Verbalize Understanding, Return Demonstration, Reinfo rcement Needed OT Intermediate Goals Intermediate Goals Time Frame: Nov 23, 2021 Oral Hygiene (QC): 5 Toileting Hygiene (QC): 4 Upper Body Dressing (QC): 4 Lower Body Dressing (QC): 4 (SBA) 1=Demonstrate adherence to instructed precautions during ADL tasks. 2=Patient will verbalize/demonstrate understanding of assistive devices/modifications for ADL. 3=Patient will improve strength/tolerance for activity to enable patient to perform ADL's. OT Education/Plan Problem List/Assessment Assessment: Decreased Activ Tolerance, Decreased Safety Aware, Edema, Impaired Cognition, Impaired Funct Balance, Impaired Self-Care Skills Discharge Recommendations Plan/Recommendations: Continue POC Treatment Plan/Plan of Care Treatment,Training & Education: Yes Patient would benefit from OT for education, treatment and training to promote independence in ADL's, mobility, safety and/or upper extremity function for ADL' s. Plan of Care: ADL Retraining, Caregiver Training, Functional Mobility, Group Exercise/Act as Ind, UE Funct Exercise/Act Treatment Duration: Nov 23, 2021 Frequency: 3 times per week (3-5x/week) Estimated Hrs Per Day: .25 hour per day Agreement: Yes Time/GCodes Start Time: 13:13 Stop Time: 13:26 Total Time Billed (hr/min): 13 Billed Treatment Time 1 visit Iman Lovelace OT Nov 13, 2021 14:09
--- NOTE | 2021-11-13 14:59 | Physical Therapy Evaluation ---
PT Evaluation-General Medical Diagnosis Admission Date Nov 11, 2021 at 00:46 Medical Diagnosis: resp failure 2/2 COPD exacerbation Onset Date: Nov 11, 2021 Therapy Diagnosis Therapy Diagnosis: Gait deficit, strength deficit Precautions Precautions/Isolations: Fall Prevention, Standard Precautions Referral Physician: Dr. Frazier Reason for Referral: Evaluation/Treatment Social History Home: Multilevel Current Living Status: Spouse PT Steps Into Home: 2 PT Steps Inside Home: 14 Prior Prior Level of Function SCALE: Activities may be completed with or without assistive devices. 0-Tjhyiqomdy-iwckqhn completes the activity by him/herself with no assistance from a helper. 5-Set-up or Clean-up Assistance-helper sets up or cleans up; patient completes activity. [place] assists only prior to or following the activity. 4-Supervision or Touching Assistance-helper provides verbal cues and/or touching/steadying and/or contact guard assistance as patient completes activity. Assistance may be provided throughout the activity or intermittently. 3-Partial/Moderate Assistance-helper does LESS THAN HALF the effort. [place] lifts, holds or supports trunk or limbs, but provides less than half the effort. 2-Substantial/Maximal Assistance-helper does MORE THAN HALF the effort. [place] lifts or holds trunk or limbs and provides more than half the effort. 9-Dqkwfgcyg-qsbudq does ALL the effort. Patient does none of the effort to complete the activity. Or, the assistance of 2 or more helpers is required for the patient to complete the activity. If activity was not attempted, code reason: 7-Patient Refused. 9-Not Applicable-not attempted and the patient did not perform the activity before the current illness, exacerbation or injury. 10-Not Attempted due to Environmental Limitations-(lack of equipment, weather restraints, etc.). 88-Not Attempted due to Medical Conditions or Safety Concerns. Bed Mobility: 6 Transfers (B,C,W/C): 6 Gait: 6 Stairs: 6 Indoor Mobility (Ambulation): Independent Stairs: Independent Patient reports he is capable of performing all ADLs I, however "sometimes my will wash my back and hair, and she does all the cooking and cleaning." PT Evaluation-Current Subjective Patient lying supine in bed upon PT arrival, agreeable to treatment. Patient rates pain at 0/10 currently. Objective Patient Orientation: Person, Place, Time, Situation Attachments: Oxygen, Brown Catheter, IV ROM/Strength ROM Lower Extremities WFLs bilaterally Strength Lower Extremities 4-/5 bilaterally all planes Sensory Vision: Functional Hearing: Functional Hand Dominance: Right Sensation Right Lower Extremit: Intact Sensation Left Lower Extremity: Intact Transfers Roll Left to Right (QC): 4 Sit to Lying (QC): 4 Lying to Sitting/Side of Bed(Q: 4 Sit to Stand (QC): 4 Chair/Ykw-cm-Nfrom Xfer(QC): 4 Gait Does the Patient Walk?: Yes Mode of Locomotion: Walk Anticipated Mode of Locomotion: Walk Walk 10 feet (QC): 4 Walk 50 ft with 2 Turns(QC): 4 Walk 150 ft (QC): 4 Distance: 200 Gait Assistive Device: None Balance Sitting Static: Normal Sitting Dynamic: Normal Standing Static: Good Standing Dynamic: Fair Assessment/Needs Patient tolerated treatment well. Demonstrates some fatigue towards the end of gait, however is able to ambulate sans rest break. Patient performs all bed mobility with SBA and all transfers with CGA. Patient ambulates 200 feet with no AD per his request, with CGA and verbal cues for safety, progression, conservation of energy. Patient ambulates with shortened stride length bilaterally, out-toeing bilaterally and diminished TKE during stance phase. Patient tends to ambulate with rounded shoulders, and a mild forward trunk posture. Patient in chair post treatment all needs met, call light in hand, and nursing notified. Rehab Potential: Good Equipment Needs Unsure at this time PT On Call Goals Usp Goals PT Usp Goals Time Frame: Nov 25, 2021 Roll Left & Right (QC): 6 Sit to Lying (QC): 6 Lying-Sitting on Side/Bed(QC): 6 Sit to Stand (QC): 6 Chair/Xay-ir-Qsnuh Xfer(QC): 6 Toilet Transfer (QC): 6 Does the Patient Walk: Yes Walk 10 feet (QC): 5 Walk 50ft with 2 Turns (QC): 5 Walk 150 ft (QC): 5 1 Step (curb) (QC): 4 4 Steps (QC): 4 12 Steps (QC): 4 PT Plan Problem List Problem List: Activity Tolerance, Functional Strength, Safety, Balance, Gait, Transfer, Bed Mobility, ROM Treatment/Plan Treatment Plan: Continue Plan of Care Treatment Plan: Bed Mobility, Education, Functional Activity Ajith, Functional Strength, Group Therapy, Gait, Safety, Therapeutic Exercise, Transfers Treatment Duration: Dec 20, 2021 Frequency: 6 times per week Estimated Hrs Per Day: .25 hour per day Patient and/or Family Agrees t: Yes Safety Risks/Education Patient Education: Gait Training, Transfer Techniques Teaching Recipient: Patient Teaching Methods: Demonstration, Discussion Response to Teaching: Verbalize Understanding, Return Demonstration Discharge Recommendations Target Placement Home with assistance Time/GCodes Time In: 1357 Time Out: 1415 Total Billed Treatment Time: 18 Total Billed Treatment Visit, EM HOOVER PT Nov 13, 2021 14:59
--- NOTE | 2021-11-13 16:05 | Progress Note - Hospitalist ---
HARJIT MCKEON 11/13/21 1605: Subjective HPI/CC On Admission Date Seen by Provider: Nov 13, 2021 Time Seen by Provider: 10:45 CC: Acute chronic respiratory failure HPI: 70 yr old WM who had been sick for a couple of weeks presumably from Covid. He presented to [place] with acute hypoxic respiratory failure. He is now BiPAP dependent. PCR is pending for Covid. Community acquired pneumonia was started with Azithromycin and Rocephin. ABG is 7.28/77/66. Overall he will be monitored closely for any need for intubation. Subjective/Events-last exam Patient was the most alert that he has been during his hospital stay. Is on high flow nasal cannula 6L and using BIPAP at night with settings 22/12 35%. He denies being on any oxygen at home. Says that he was previously diagnosed with DAMIAN and had a CPAP machine but he had lost weight and had been able to stop using it. He is feeling well today and has been ambulating to the bathroom with help from his nurses. Patient denies being in any pain and does not have any concerns. Review of Systems General: No Chills; Fatigue HEENT: No Head Aches, No Visual Changes Pulmonary: Dyspnea, Cough Cardiovascular: No: Chest Pain, Palpitations Gastrointestinal: No: Nausea, Vomiting, Diarrhea, Constipation Genitourinary: No Dysuria Neurological: No: Weakness Focused Exam Lactate Level 11/11/21 01:03: Lactic Acid Level 0.71 Objective Exam Vital Signs Vital Signs Date Time Temp Pulse Resp B/P (MAP) Pulse Ox O2 Delivery O2 Flow Rate FiO2 11/13/21 15:37 37.1 85 20 145/79 95 High Flow N/C 3.00 11/12/21 08:00 35 Capillary Refill : Less Than 3 Seconds General Appearance: No Apparent Distress, WD/WN HEENT: PERRL/EOMI Neck: Full Range of Motion, Normal Inspection, Non Tender Respiratory: Chest Non Tender, Lungs Clear, Normal Breath Sounds, No Accessory Muscle Use, No Respiratory Distress Cardiovascular: Regular Rate, Rhythm, No Murmur Gastrointestinal: Normal Bowel Sounds, No Organomegaly, No Pulsatile Mass, Non Tender, Soft Extremity: Normal Capillary Refill, Normal Range of Motion, Non Tender, Pedal Edema (2+ pitting edema) Neurologic/Psychiatric: Alert, Oriented x3, Normal Mood/Affect Skin: Normal Color, Warm/Dry Results/Procedures Lab Laboratory Tests 11/13/21 05:50 Patient resulted labs reviewed. Assessment/Plan Assessment and Plan Assess & Plan/Chief Complaint Assessment: COPD exacerbation due to pneumonia Pneumonia Respiratory failure Debility Diabetes HTN High cholesterol BPH Plan: COPD exacerbation due to pneumonia - Continue to take Albuterol - Continue to take Dexamethasone - Wean patient off of BIPAP and decrease nasal cannula Pneumonia - Day 3 of IV Azithromycin and treatment will end 11/15 - Day 3 IV Ceftriaxone and treatment will end 11/16 Respiratory failure - Patient on BIPAP 18/09 35% - Patient has DAMIAN and will need to have a CPAP machine to use at home Debility -patient has started ambulating and will work with PT to improve strength Diabetes - Sliding scale insulin aspart - Glipizide restarted from home medications HTN - Hydrochlorothiazide restarted from home medications - Lisinopril restarted from home medications - Amlodipine restarted from home medications High cholesterol - Simvastatin restarted from home medications BPH -Terazosin restarted from home medications DVT prophylaxis - Enoxaparin - Warfarin restarted from home medications - INR 1.3 today Ulcer prophylaxis - Pantoprazole Diagnosis/Problems Diagnosis/Problems (1) Respiratory failure (2) COPD exacerbation (3) Diabetes (4) Hypertension (5) High cholesterol (6) BPH (benign prostatic hyperplasia) (7) Pneumonia (8) Debility TATUM DON DO 11/14/21 0531: Subjective Subjective/Events-last exam Pt is doing a lot better Antibiotic maintained INR is 1.3 restarted Coumadin yesterday ABG revealed 7.40/59/89 PT and OT will be maintained His is at the bedside Checked meds and labs He may very well require vent to mask or BiPAP at discharge due to elevated CO2 retention Review of Systems Pulmonary: Dyspnea Objective Exam General Appearance: No Apparent Distress, WD/WN, Chronically ill Respiratory: Lungs Clear, Normal Breath Sounds Cardiovascular: Regular Rate, Rhythm Neurologic/Psychiatric: Alert, Oriented x3, No Motor/Sensory Deficits, Normal Mood/Affect Assessment/Plan Assessment and Plan Assess & Plan/Chief Complaint Decrease steroids Continue Coumadin Supervisory-Addendum Brief Verification & Attestation Participated in pt care: history, MDM, physical Personally performed: exam, history, MDM, supervision of care Care discussed with: Medical Student Procedures: n/a Results interpretation: Verified all documentation Verification and Attestation of Medical Student E/M Service A medical student performed and documented this service in my presence. I reviewed and verified all information documented by the medical student and made modifications to such information, when appropriate. I personally performed the physical exam and medical decision making. Tatum Don, Nov 14, 2021,05:30 HARJIT MCKEON Nov 13, 2021 16:05 TATUM DON DO Nov 14, 2021 05:31
[2021-11-13] MEDS: cefTRIAXone 1 GM PRE-MIX 50 ML IV SCH (20:10)
[2021-11-13] MEDS: warFARin 1 MG (COUMADIN) TAB PO SCH (20:12)
[2021-11-13] MEDS: warFARin 7.5 MG (COUMADIN) TAB PO SCH (20:12)
[2021-11-13] MEDS: SIMvastatin 10 MG (ZOCOR) TAB PO SCH (20:13)
[2021-11-13] MEDS: TERAZOSIN 1 MG CAP (HYTRIN) PO SCH (20:14)
[2021-11-13] MEDS: lisINopril 40 MG (PRINIVIL) TABLET PO SCH (20:14)
[2021-11-13] MEDS: amLODIPine 10 MG (NORVASC) TAB PO SCH (20:15)
[2021-11-13] MEDS: AZITHROMYCIN INJECTION 500 MG in NS (IVPB) 250 ML IV SCH (20:42)
[2021-11-14] MEDS: RT-ALBUTEROL HFA 8.5 GM INHALER IH SCH ×6 (02:20→22:30)
[2021-11-14] MEDS: inSUlin ASPART (NovoLOG) 1 UNIT/0.01 ML (CHARGE PER UNIT) SC SCH ×4 (05:33→20:44)
[2021-11-14] MEDS: dexAMETHasone 6 MG TAB (DECADRON) PO SCH (05:34)
--- NOTE | 2021-11-14 05:45 | Progress Note - Hospitalist ---
Subjective HPI/CC On Admission Date Seen by Provider: Nov 14, 2021 Time Seen by Provider: 10:00 CC: Acute chronic respiratory failure HPI: 70 yr old WM who had been sick for a couple of weeks presumably from Covid. He presented to [place] with acute hypoxic respiratory failure. He is now BiPAP dependent. PCR is pending for Covid. Community acquired pneumonia was started with Azithromycin and Rocephin. ABG is 7.28//66. Overall he will be monitored closely for any need for intubation. Subjective/Events-last exam Pt is doing a lot better Brown will be discontinued [facility] Home O2 evaluation will be done today [facility] will be his durable medical equipment Review of Systems General: Fatigue Pulmonary: Dyspnea Objective Exam Vital Signs Vital Signs Date Time Temp Pulse Resp B/P (MAP) Pulse Ox O2 Delivery O2 Flow Rate FiO2 11/15/21 03:20 94 High Flow N/C 2.00 11/14/21 23:16 35.7 84 20 140/77 11/14/21 14:38 28 Capillary Refill : Less Than 3 Seconds General Appearance: No Apparent Distress, WD/WN, Chronically ill, Obese Respiratory: Lungs Clear, Normal Breath Sounds Cardiovascular: Regular Rate, Rhythm Neurologic/Psychiatric: Alert, Oriented x3, No Motor/Sensory Deficits, Normal Mood/Affect Results/Procedures Lab Laboratory Tests 11/14/21 07:36 Patient resulted labs reviewed. Assessment/Plan Assessment and Plan Assess & Plan/Chief Complaint Assessment: COPD exacerbation due to pneumonia Pneumonia Respiratory failure Debility Diabetes HTN High cholesterol BPH Plan: COPD exacerbation due to pneumonia - Continue to take Albuterol - Continue to take Dexamethasone - Weaned patient off of BIPAP and decreased to nasal cannula Pneumonia - Day 3 of IV Azithromycin and treatment will end 11/15 - Day 3 IV Ceftriaxone and treatment will end 11/16 Respiratory failure - Patient on BIPAP 18/09 35% - Patient has DAMIAN and will need to have a CPAP machine to use at home Debility -patient has started ambulating and will work with PT to improve strength Diabetes - Sliding scale insulin aspart - Glipizide restarted from home medications HTN - Hydrochlorothiazide restarted from home medications - Lisinopril restarted from home medications - Amlodipine restarted from home medications High cholesterol - Simvastatin restarted from home medications BPH -Terazosin restarted from home medications DVT prophylaxis - Enoxaparin - Warfarin restarted from home medications - INR daily Ulcer prophylaxis - Pantoprazole Critical Care Critically Ill Patient KATY DON DO Nov 14, 2021 05:45
[2021-11-14 07:41] LABS: BASOPHILS % (AUTO) 0 % (0-10); EOSINOPHILS % (AUTO) 0 % (0-10); HEMATOCRIT 41 % (40-54); HEMOGLOBIN 12.6 g/dL (13.3-17.7); LYMPHOCYTES # (AUTO) 0.7 10^3/uL (1.0-4.0); LYMPHOCYTES % (AUTO) 10 % (12-44); MEAN CORPUSCULAR HEMOGLOBIN 26 pg (25-34); MEAN CORPUSCULAR HGB CONC 31 g/dL (32-36); MEAN CORPUSCULAR VOLUME 85 fL (80-99); MEAN PLATELET VOLUME 10.3 fL (9.0-12.2); MONOCYTES # (AUTO) 0.4 10^3/uL (0.0-1.0); MONOCYTES % (AUTO) 6 % (0-12); NEUTROPHILS # (AUTO) 5.8 10^3/uL (1.8-7.8); NEUTROPHILS % (AUTO) 84 % (42-75); PLATELET COUNT 299 10^3/uL (130-400)
[2021-11-14 08:02] LABS: ALBUMIN 3.7 GM/DL (3.2-4.5); BILIRUBIN,TOTAL 0.4 MG/DL (0.1-1.0); CALCIUM 9.1 MG/DL (8.5-10.1); CREATININE SERUM 1.01 MG/DL (0.60-1.30); POTASSIUM 3.9 MMOL/L (3.6-5.0); TOTAL PROTEIN 7.6 GM/DL (6.4-8.2)
[2021-11-14] MEDS: TRIAMTERENE/HCTZ 75-50 (MAXZIDE,DYAZIDE) TABLET PO SCH (09:00)
[2021-11-14] MEDS: ASPIRIN 325 MG (5 GR) TABLET PO SCH (09:00)
[2021-11-14] MEDS: SENNA W/DOCUSATE (SENOKOT S) TABLET PO SCH ×2 (09:01→19:46)
[2021-11-14] MEDS: ENOXAPARIN 40 MG/0.4 ML (LOVENOX) SYR SC SCH (09:01)
[2021-11-14] MEDS: glipiZIDE 5 MG (GLUCOTROL) TAB PO SCH (09:01)
--- NOTE | 2021-11-14 10:53 | Physical Therapy Daily Note ---
PT Daily Note-Current Subjective Patient presented sitting in his chair and agreed to ambulate with physical therapy. Mental Status Patient Orientation: Person, Place, Time, Situation Transfers SCALE: Activities may be completed with or without assistive devices. 1-Ilwkqrcsrg-bxhcezd completes the activity by him/herself with no assistance from a helper. 5-Set-up or Clean-up Assistance-helper sets up or cleans up; patient completes activity. [place] assists only prior to or following the activity. 4-Supervision or Touching Assistance-helper provides verbal cues and/or touching/steadying and/or contact guard assistance as patient completes activity. Assistance may be provided throughout the activity or intermittently. 3-Partial/Moderate Assistance-helper does LESS THAN HALF the effort. [place] lifts, holds or supports trunk or limbs, but provides less than half the effort. 2-Substantial/Maximal Assistance-helper does MORE THAN HALF the effort. [place] lifts or holds trunk or limbs and provides more than half the effort. 7-Etkkojjte-ynkpsl does ALL the effort. Patient does none of the effort to complete the activity. Or, the assistance of 2 or more helpers is required for the patient to complete the activity. If activity was not attempted, code reason: 7-Patient Refused. 9-Not Applicable-not attempted and the patient did not perform the activity before the current illness, exacerbation or injury. 10-Not Attempted due to Environmental Limitations-(lack of equipment, weather restraints, etc.). 88-Not Attempted due to Medical Conditions or Safety Concerns. Sit to Stand (QC): 6 Gait Training Does the Patient Walk?: Yes Distance: 200' Walk 10 feet (QC): 6 Walk 50 ft with 2 Turns(QC): 6 Walk 150 ft (QC): 6 Gait Assistive Device: None Exercises Seated Therapy Exercises: Long arc quads, Hip flexion Seated Reps: 15 Assessment Patient ambulated and performed seated exercises today with therapy. Patient ambulated independently but reported SOA after ambulation. Patient sat in his chair and recovered quickly. Patient is getting d/c from therapy services due to patient being at PLOF and independence with ambulation and transfers. PT Change Lead Goals Change Lead Goals PT Change Lead Goals Time Frame: Nov 25, 2021 Roll Left & Right (QC): 6 Sit to Lying (QC): 6 Lying-Sitting on Side/Bed(QC): 6 Sit to Stand (QC): 6 Chair/Bfs-yn-Zelpr Xfer(QC): 6 Toilet Transfer (QC): 6 Does the Patient Walk: Yes Walk 10 feet (QC): 5 Walk 50ft with 2 Turns (QC): 5 Walk 150 ft (QC): 5 1 Step (curb) (QC): 4 4 Steps (QC): 4 12 Steps (QC): 4 PT Plan Treatment/Plan Treatment Plan: Discontinue PT, goals met Treatment Plan: Bed Mobility, Education, Functional Activity Ajith, Functional Strength, Group Therapy, Gait, Safety, Therapeutic Exercise, Transfers Treatment Duration: Dec 20, 2021 Frequency: 6 times per week Estimated Hrs Per Day: .25 hour per day Patient and/or Family Agrees t: Yes Discharge Recommendations Plan Discharge from therapy services due to patient's independence and patient back to [facility]. Time/GCodes Time In: 955 Time Out: 1003 Total Billed Treatment Time: 8 Total Billed Treatment 1 Visit FA 9 min MAYLIN FINNEY PT Nov 14, 2021 10:53
[2021-11-14 14:38] VITALS: BP 151/87
[2021-11-14] MEDS: cefTRIAXone 1 GM PRE-MIX 50 ML IV SCH (19:45)
[2021-11-14] MEDS: TERAZOSIN 1 MG CAP (HYTRIN) PO SCH (19:46)
[2021-11-14] MEDS: SIMvastatin 10 MG (ZOCOR) TAB PO SCH (19:46)
[2021-11-14] MEDS: amLODIPine 10 MG (NORVASC) TAB PO SCH (19:46)
[2021-11-14] MEDS: lisINopril 40 MG (PRINIVIL) TABLET PO SCH (19:46)
[2021-11-14] MEDS: warFARin 1 MG (COUMADIN) TAB PO SCH (19:53)
[2021-11-14] MEDS: warFARin 7.5 MG (COUMADIN) TAB PO SCH (19:53)
[2021-11-14] MEDS: AZITHROMYCIN INJECTION 500 MG in NS (IVPB) 250 ML IV SCH (20:17)
[2021-11-15] MEDS: RT-ALBUTEROL HFA 8.5 GM INHALER IH SCH ×3 (03:20→10:12)
[2021-11-15] MEDS: inSUlin ASPART (NovoLOG) 1 UNIT/0.01 ML (CHARGE PER UNIT) SC SCH ×2 (05:25→11:46)
[2021-11-15] MEDS: dexAMETHasone 6 MG TAB (DECADRON) PO SCH (05:26)
[2021-11-15 06:22] LABS: BASOPHILS % (AUTO) 0 % (0-10); EOSINOPHILS # (AUTO) 0.1 10^3/uL (0.0-0.3); EOSINOPHILS % (AUTO) 1 % (0-10); HEMATOCRIT 40 % (40-54); HEMOGLOBIN 12.2 g/dL (13.3-17.7); LYMPHOCYTES % (AUTO) 15 % (12-44); MEAN CORPUSCULAR HEMOGLOBIN 27 pg (25-34); MEAN CORPUSCULAR HGB CONC 31 g/dL (32-36); MEAN CORPUSCULAR VOLUME 86 fL (80-99); MEAN PLATELET VOLUME 10.7 fL (9.0-12.2); MONOCYTES # (AUTO) 0.6 10^3/uL (0.0-1.0); MONOCYTES % (AUTO) 9 % (0-12); NEUTROPHILS # (AUTO) 4.9 10^3/uL (1.8-7.8); NEUTROPHILS % (AUTO) 75 % (42-75); PLATELET COUNT 265 10^3/uL (130-400); WHITE BLOOD COUNT 6.6 10^3/uL (4.3-11.0)
[2021-11-15 06:34] LABS: ALBUMIN 3.5 GM/DL (3.2-4.5)
[2021-11-15 06:36] LABS: CALCIUM 8.8 MG/DL (8.5-10.1)
[2021-11-15 06:37] LABS: TOTAL PROTEIN 6.9 GM/DL (6.4-8.2)
[2021-11-15 06:39] LABS: BILIRUBIN,TOTAL 0.3 MG/DL (0.1-1.0)
[2021-11-15 06:41] LABS: CREATININE SERUM 0.82 MG/DL (0.60-1.30)
[2021-11-15 07:13] LABS: INR 1.4 (0.8-1.4); PROTHROMBIN TIME PATIENT 17.3 SEC (12.2-14.7)
[2021-11-15] MEDS: SENNA W/DOCUSATE (SENOKOT S) TABLET PO SCH (08:59)
[2021-11-15] MEDS: TRIAMTERENE/HCTZ 75-50 (MAXZIDE,DYAZIDE) TABLET PO SCH (08:59)
[2021-11-15] MEDS: ASPIRIN 325 MG (5 GR) TABLET PO SCH (08:59)
[2021-11-15] MEDS: glipiZIDE 5 MG (GLUCOTROL) TAB PO SCH (08:59)
[2021-11-15] MEDS: ENOXAPARIN 40 MG/0.4 ML (LOVENOX) SYR SC SCH (08:59)
[2021-11-15] MEDS ORDERED: CEFD300C3 PO (10:46)
[2021-11-15] MEDS ORDERED: DEXA6TAB PO (10:46)
--- NOTE | 2021-11-15 10:52 | Discharge Summary ---
Diagnosis/Chief Complaint Date of Admission Nov 11, 2021 at 00:46 Date of Discharge Discharge Date: Nov 15, 2021 Discharge Diagnosis Assessment: COPD exacerbation due to pneumonia Pneumonia Respiratory failure Debility Diabetes HTN High cholesterol BPH Plan: COPD exacerbation due to pneumonia - Continue to take Albuterol - Continue to take Dexamethasone - Weaned patient off of BIPAP and decreased to nasal cannula Pneumonia - Day 3 of IV Azithromycin and treatment will end 11/15 - Day 3 IV Ceftriaxone and treatment will end 11/16 Respiratory failure - Patient on BIPAP 18/09 35% - Patient has DAMIAN and will need to have a CPAP machine to use at home Debility -patient has started ambulating and will work with PT to improve strength Diabetes - Sliding scale insulin aspart - Glipizide restarted from home medications HTN - Hydrochlorothiazide restarted from home medications - Lisinopril restarted from home medications - Amlodipine restarted from home medications High cholesterol - Simvastatin restarted from home medications BPH -Terazosin restarted from home medications DVT prophylaxis - Enoxaparin - Warfarin restarted from home medications - INR daily Ulcer prophylaxis - Pantoprazole Discharge Summary Discharge Physical Examination Allergies: Coded Allergies: rosuvastatin (Verified Allergy, Unknown, 09/12/20) Vitals & I&Os Vital Signs Date Time Temp Pulse Resp B/P (MAP) Pulse Ox O2 Delivery O2 Flow Rate FiO2 11/15/21 15:30 35.8 79 18 152/93 95 High Flow N/C 2.00 11/14/21 14:38 28 General Appearance: Alert, Oriented X3, Cooperative Respiratory: Clear to Auscultation Cardiovascular: Regular Rate Neuro: Normal Gait, Normal Speech, Strength at 5/5 X4 Ext Psych/Mental Status: Mental Status NL Hospital Course Was the Problem List Reviewed?: Yes Pt had an uneventful hospital course for 5 days. He was admitted for acute respiratory failure. Ruled out Covid. Maintained on BiPAP and ultimately regained enough function, was titrated off oxygen and BiPAP. He met criteria for Trilogy with supplemental oxygen at home at discharge. He was deemed stable and improved. Labs (last 24 hrs) Laboratory Tests 11/11/21 01:03: White Blood Count 10.7, Red Blood Count 4.99, Hemoglobin 13.1L, Hematocrit 43, Mean Corpuscular Volume 85, Mean Corpuscular Hemoglobin 26, Mean Corpuscular Hemoglobin Concent 31L, Red Cell Distribution Width 14.5, Platelet Count 298, Mean Platelet Volume 10.7, Immature Granulocyte % (Auto) 1, Neutrophils (%) (Auto) 96H, Lymphocytes (%) (Auto) 2L, Monocytes (%) (Auto) 1, Eosinophils (%) (Auto) 0, Basophils (%) (Auto) 0, Neutrophils # (Auto) 10.2H, Lymphocytes # (Auto) 0.3L, Monocytes # (Auto) 0.1, Eosinophils # (Auto) 0.0, Basophils # (Auto) 0.0, Immature Granulocyte # (Auto) 0.1, Neutrophils % (Manual) 97, Lymphocytes % (Manual) 3, Blood Morphology Comment NORMAL, D-Dimer <= 0.27, Sodium Level 138, Potassium Level 4.7, Chloride Level 97L, Carbon Dioxide Level 24, Anion Gap 17H, Blood Urea Nitrogen 19H, Creatinine 1.04, Estimat Glomerular Filtration Rate 78, BUN/Creatinine Ratio 18, Glucose Level 268H, Lactic Acid Level 0.71, Calcium Level 8.8, Corrected Calcium 8.8, Phosphorus Level 3.8, Magnesium Level 1.9, Total Bilirubin 0.6, Aspartate Amino Transf (AST/SGOT) 16, Alanine Aminotransferase (ALT/SGPT) 20, Alkaline Phosphatase 60, Total Protein 7.8, Albumin 4.0 11/11/21 01:08: Glucometer 250H 11/11/21 02:20: Blood Gas Puncture Site LEFT RADIAL, Blood Gas Patient Temperature 36.7, Arterial Blood pH 7.28*L, Arterial Blood Partial Pressure CO2 77*H, Arterial Blood Partial Pressure O2 66L, Arterial Blood HCO3 35H, Arterial Blood Total CO2 37.8H, Arterial Blood Oxygen Saturation 92L, Arterial Blood Base Excess 8.8H, [place]ure[place] Test YES-POS, Blood Gas Ventilator Setting NO, Blood Gas Inspired Oxygen 70% 11/11/21 06:07: Glucometer 290H 11/11/21 10:40: Glucometer 212H 11/11/21 14:15: Blood Gas Puncture Site LR, Blood Gas Patient Temperature 36.7, Arterial Blood pH 7.35L, Arterial Blood Partial Pressure CO2 66H, Arterial Blood Partial Pressure O2 78L, Arterial Blood HCO3 36H, Arterial Blood Total CO2 37.6H, Arterial Blood Oxygen Saturation 96, Arterial Blood Base Excess 9.8H, Laureano Test YES-POS, Blood Gas Ventilator Setting NO, Blood Gas Inspired Oxygen 70% 11/11/21 17:03: Glucometer 200H 11/11/21 20:20: Glucometer 189H 11/12/21 04:33: White Blood Count 10.1, Red Blood Count 4.62, Hemoglobin 12.2L, Hematocrit 40, Mean Corpuscular Volume 86, Mean Corpuscular Hemoglobin 26, Mean Corpuscular Hemoglobin Concent 31L, Red Cell Distribution Width 14.6H, Platelet Count 320, Mean Platelet Volume 10.8, Immature Granulocyte % (Auto) 0, Neutrophils (%) (Auto) 82H, Lymphocytes (%) (Auto) 9L, Monocytes (%) (Auto) 8, Eosinophils (%) (Auto) 0, Basophils (%) (Auto) 0, Neutrophils # (Auto) 8.3H, Lymphocytes # (Auto) 0.9L, Monocytes # (Auto) 0.8, Eosinophils # (Auto) 0.0, Basophils # (Auto) 0.0, Immature Granulocyte # (Auto) 0.0, Prothrombin Time 18.5H, INR Comment 1.5H, Sodium Level 137, Potassium Level 4.1, Chloride Level 97L, Carbon Dioxide Level 29, Anion Gap 11, Blood Urea Nitrogen 26H, Creatinine 1.08, Estimat Glomerular Filtration Rate 75, BUN/Creatinine Ratio 24, Glucose Level 168H, Calcium Level 8.4L, Corrected Calcium 9.0, Phosphorus Level 2.6, Magnesium Level 2.1, Total Bilirubin 0.4, Aspartate Amino Transf (AST/SGOT) 14, Alanine Aminotransferase (ALT/SGPT) 21, Alkaline Phosphatase 50, Total Protein 6.6, Albumin 3.3 11/12/21 07:43: Glucometer 163H 11/12/21 11:01: Glucometer 139H 11/12/21 21:18: Glucometer 230H 11/13/21 05:40: Glucometer 154H 11/13/21 05:50: White Blood Count 6.9, Red Blood Count 4.43, Hemoglobin 11.3L, Hematocrit 38L, Mean Corpuscular Volume 87, Mean Corpuscular Hemoglobin 26, Mean Corpuscular Hemoglobin Concent 30L, Red Cell Distribution Width 14.8H, Platelet Count 293, Mean Platelet Volume 10.3, Immature Granulocyte % (Auto) 0, Neutrophils (%) (Auto) 72, Lymphocytes (%) (Auto) 16, Monocytes (%) (Auto) 11, Eosinophils (%) (Auto) 1, Basophils (%) (Auto) 0, Neutrophils # (Auto) 4.9, Lymphocytes # (Auto) 1.1, Monocytes # (Auto) 0.8, Eosinophils # (Auto) 0.1, Basophils # (Auto) 0.0, Immature Granulocyte # (Auto) 0.0, Prothrombin Time 16.2H, INR Comment 1.3, Sodium Level 141, Potassium Level 3.7, Chloride Level 100, Carbon Dioxide Level 31, Anion Gap 10, Blood Urea Nitrogen 29H, Creatinine 1.21, Estimat Glomerular F iltration Rate 65, BUN/Creatinine Ratio 24, Glucose Level 157H, Calcium Level 8.5, Corrected Calcium 9.1, Total Bilirubin 0.6, Aspartate Amino Transf (AST/SGOT) 13, Alanine Aminotransferase (ALT/SGPT) 18, Alkaline Phosphatase 55, Total Protein 6.5, Albumin 3.2 11/13/21 07:39: Blood Gas Puncture Site LEFT RADIAL, Blood Gas Patient Temperature 36.2, Arterial Blood pH 7.40, Arterial Blood Partial Pressure CO2 59H, Arterial Blood Partial Pressure O2 89, Arterial Blood HCO3 36H, Arterial Blood Total CO2 37.9H, Arterial Blood Oxygen Saturation 98, Arterial Blood Base Excess 10.7H, Laureano Test YES-POS, Blood Gas Ventilator Setting NO, Blood Gas Inspired Oxygen 35% 11/13/21 11:14: Glucometer 236H 11/13/21 15:34: Glucometer 268H 11/13/21 20:42: Glucometer 228H 11/14/21 05:27: Glucometer 207H 11/14/21 07:36: White Blood Count 7.0, Red Blood Count 4.83, Hemoglobin 12.6L, Hematocrit 41, Mean Corpuscular Volume 85, Mean Corpuscular Hemoglobin 26, Mean Corpuscular Hemoglobin Concent 31L, Red Cell Distribution Width 14.3, Platelet Count 299, Mean Platelet Volume 10.3, Immature Granulocyte % (Auto) 0, Neutrophils (%) (Auto) 84H, Lymphocytes (%) (Auto) 10L, Monocytes (%) (Auto) 6, Eosinophils (%) (Auto) 0, Basophils (%) (Auto) 0, Neutrophils # (Auto) 5.8, Lymphocytes # (Auto) 0.7L, Monocytes # (Auto) 0.4, Eosinophils # (Auto) 0.0, Basophils # (Auto) 0.0, Immature Granulocyte # (Auto) 0.0, Sodium Level 138, Potassium Level 3.9, Chloride Level 97L, Carbon Dioxide Level 30, Anion Gap 11, Blood Urea Nitrogen 21H, Creatinine 1.01, Estimat Glomerular Filtration Rate 81, BUN/Creatinine Ratio 21, Glucose Level 193H, Calcium Level 9.1, Corrected Calcium 9.3, Total Bilirubin 0.4, Aspartate Amino Transf (AST/SGOT) 12, Alanine Aminotransferase (ALT/SGPT) 19, Alkaline Phosphatase 56, Total Protein 7.6, Albumin 3.7 11/14/21 11:14: Glucometer 282H 11/14/21 15:45: Glucometer 235H 11/14/21 20:38: Glucometer 222H 11/15/21 05:22: Glucometer 176H 11/15/21 05:36: White Blood Count 6.6, Red Blood Count 4.61, Hemoglobin 12.2L, Hematocrit 40, Mean Corpuscular Volume 86, Mean Corpuscular Hemoglobin 27, Mean Corpuscular Hemoglobin Concent 31L, Red Cell Distribution Width 14.3, Platelet Count 265, Mean Platelet Volume 10.7, Immature Granulocyte % (Auto) 1, Neutrophils (%) (Auto) 75, Lymphocytes (%) (Auto) 15, Monocytes (%) (Auto) 9, Eosinophils (%) (Auto) 1, Basophils (%) (Auto) 0, Neutrophils # (Auto) 4.9, Lymphocytes # (Auto) 1.0, Monocytes # (Auto) 0.6, Eosinophils # (Auto) 0.1, Basophils # (Auto) 0.0, Immature Granulocyte # (Auto) 0.0, Prothrombin Time 17.3H, INR Comment 1.4, Sodium Level 138, Potassium Level 4.0, Chloride Level 98, Carbon Dioxide Level 31, Anion Gap 9, Blood Urea Nitrogen 20H, Creatinine 0.82, Estimat Glomerular Filtration Rate 96, BUN/Creatinine Ratio 24, Glucose Level 191H, Calcium Level 8.8, Corrected Calcium 9.2, Total Bilirubin 0.3, Aspartate Amino Transf (AST/ SGOT) 14, Alanine Aminotransferase (ALT/SGPT) 19, Alkaline Phosphatase 46, Total Protein 6.9, Albumin 3.5 11/15/21 11:24: Glucometer 280H Pending Labs Laboratory Tests 11/11/21 01:03: White Blood Count 10.7, Red Blood Count 4.99, Hemoglobin 13.1, Hematocrit 43, Mean Corpuscular Volume 85, Mean Corpuscular Hemoglobin 26, Mean Corpuscular Hemoglobin Concent 31, Red Cell Distribution Width 14.5, Platelet Count 298, Mean Platelet Volume 10.7, Immature Granulocyte % (Auto) 1, Neutrophils (%) (Auto) 96, Lymphocytes (%) (Auto) 2, Monocytes (%) (Auto) 1, Eosinophils (%) (Auto) 0, Basophils (%) (Auto) 0, Neutrophils # (Auto) 10.2, Lymphocytes # (Auto) 0.3, Monocytes # (Auto) 0.1, Eosinophils # (Auto) 0.0, Basophils # (Auto) 0.0, Immature Granulocyte # (Auto) 0.1, Neutrophils % (Manual) 97, Lymphocytes % (Manual) 3, Blood Morphology Comment NORMAL, D-Dimer <= 0.27, Sodium Level 138, Potassium Level 4.7, Chloride Level 97, Carbon Dioxide Level 24, Anion Gap 17, Blood Urea Nitrogen 19, Creatinine 1.04, Estimat Glomerular Filtration Rate 78, BUN/Creatinine Ratio 18, Glucose Level 268, Lactic Acid Level 0.71, Calcium Level 8.8, Corrected Calcium 8.8, Phosphorus Level 3.8, Magnesium Level 1.9, Total Bilirubin 0.6, Aspartate Amino Transf (AST/SGOT) 16, Alanine Aminotransferase (ALT/SGPT) 20, Alkaline Phosphatase 60, Total Protein 7.8, [place] min 4.0 11/11/21 01:08: Glucometer 250 11/11/21 02:20: Blood Gas Puncture Site LEFT RADIAL, Blood Gas Patient Temperature 36.7, Arterial Blood pH 7.28, Arterial Blood Partial Pressure CO2 77, Arterial Blood Partial Pressure O2 66, Arterial Blood HCO3 35, Arterial Blood Total CO2 37.8, Arterial Blood Oxygen Saturation 92, Arterial Blood Base Excess 8.8, Laureano Test YES-POS, Blood Gas Ventilator Setting NO, Blood Gas Inspired Oxygen 70% 11/11/21 06:07: Glucometer 290 11/11/21 10:40: Glucometer 212 11/11/21 14:15: Blood Gas Puncture Site LR, Blood Gas Patient Temperature 36.7, Arterial Blood pH 7.35, Arterial Blood Partial Pressure CO2 66, Arterial Blood Partial Pressure O2 78, Arterial Blood HCO3 36, Arterial Blood Total CO2 37.6, Arterial Blood Oxygen Saturation 96, Arterial Blood Base Excess 9.8, Laureano Test YES-POS, Blood Gas Ventilator Setting NO, Blood Gas Inspired Oxygen 70% 11/11/21 17:03: Glucometer 200 11/11/21 20:20: Glucometer 189 11/12/21 04:33: White Blood Count 10.1, Red Blood Count 4.62, Hemoglobin 12.2, Hematocrit 40, Mean Corpuscular Volume 86, Mean Corpuscular Hemoglobin 26, Mean Corpuscular Hemoglobin Concent 31, Red Cell Distribution Width 14.6, Platelet Count 320, Mean Platelet Volume 10.8, Immature Granulocyte % (Auto) 0, Neutrophils (%) (Auto) 82, Lymphocytes (%) (Auto) 9, Monocytes (%) (Auto) 8, Eosinophils (%) (Auto) 0, Basophils (%) (Auto) 0, Neutrophils # (Auto) 8.3, Lymphocytes # (Auto) 0.9, Monocytes # (Auto) 0.8, Eosinophils # (Auto) 0.0, Basophils # (Auto) 0.0, Immature Granulocyte # (Auto) 0.0, Prothrombin Time 18.5, INR Comment 1.5, Sodium Level 137, Potassium Level 4.1, Chloride Level 97, Carbon Dioxide Level 29, Anion Gap 11, Blood Urea Nitrogen 26, Creatinine 1.08, Estimat Glomerular Filtration Rate 75, BUN/Creatinine Ratio 24, Glucose Level 168, Calcium Level 8.4, Corrected Calcium 9.0, Phosphorus Level 2.6, Magnesium Level 2.1, Total Bilirubin 0.4, Aspartate Amino Transf (AST/SGOT) 14, Alanine Aminotransferase (ALT/SGPT) 21, Alkaline Phosphatase 50, Total Protein 6.6, Albumin 3.3 11/12/21 07:43: Glucometer 163 11/12/21 11:01: Glucometer 139 11/12/21 21:18: Glucometer 230 11/13/21 05:40: Glucometer 154 11/13/21 05:50: White Blood Count 6.9, Red Blood Count 4.43, Hemoglobin 11.3, Hematocrit 38, Mean Corpuscular Volume 87, Mean Corpuscular Hemoglobin 26, Mean Corpuscular Hemoglobin Concent 30, Red Cell Distribution Width 14.8, Platelet Count 293, Mean Platelet Volume 10.3, Immature Granulocyte % (Auto) 0, Neutrophils (%) (Auto) 72, Lymphocytes (%) (Auto) 16, Monocytes (%) (Auto) 11, Eosinophils (%) (Auto) 1, Basophils (%) (Auto) 0, Neutrophils # (Auto) 4.9, Lymphocytes # (Auto) 1.1, Monocytes # (Auto) 0.8, Eosinophils # (Auto) 0.1, Basophils # (Auto) 0.0, Immature Granulocyte # (Auto) 0.0, Prothrombin Time 16.2, INR Comment 1.3, Sodium Level 141, Potassium Level 3.7, Chloride Level 100, Carbon Dioxide Level 31, Anion Gap 10, Blood Urea Nitrogen 29, Creatinine 1.21, Estimat Glomerular Filtration Rate 65, BUN/Creatinine Ratio 24, Glucose Level 157, Calcium Level 8.5, Corrected Calcium 9.1, Total Bilirubin 0.6, Aspartate Amino Transf (AST/SGOT) 13, Alanine Aminotransferase (ALT/SGPT) 18, Alkaline Phosphatase 55, Total Protein 6.5, Albumin 3.2 11/13/21 07:39: Blood Gas Puncture Site LEFT RADIAL, Blood Gas Patient Temperature 36.2, Arterial Blood pH 7.40, Arterial Blood Partial Pressure CO2 59, Arterial Blood Partial Pressure O2 89, Arterial Blood HCO3 36, Arterial Blood Total CO2 37.9, Arterial Blood Oxygen Saturation 98, Arterial Blood Base Excess 10.7, Laureano Test YES-POS, Blood Gas Ventilator Setting NO, Blood Gas Inspired Oxygen 35% 11/13/21 11:14: Glucometer 236 11/13/21 15:34: Glucometer 268 11/13/21 20:42: Glucometer 228 11/14/21 05:27: Glucometer 207 11/14/21 07:36: White Blood Count 7.0, Red Blood Count 4.83, Hemoglobin 12.6, Hematocrit 41, Mean Corpuscular Volume 85, Mean Corpuscular Hemoglobin 26, Mean Corpuscular Hemoglobin Concent 31, Red Cell Distribution Width 14.3, Platelet Count 299, Mean Platelet Volume 10.3, Immature Granulocyte % (Auto) 0, Neutrophils (%) (Auto) 84, Lymphocytes (%) (Auto) 10, Monocytes (%) (Auto) 6, Eosinophils (%) (Auto) 0, Basophils (%) (Auto) 0, Neutrophils # (Auto) 5.8, Lymphocytes # (Auto) 0.7, Monocytes # (Auto) 0.4, Eosinophils # (Auto) 0.0, Basophils # (Auto) 0.0, Immature Granulocyte # (Auto) 0.0, Sodium Level 138, Potassium Level 3.9, Chloride Level 97, Carbon Dioxide Level 30, Anion Gap 11, Blood Urea Nitrogen 21, Creatinine 1.01, Estimat Glomerular Filtration Rate 81, BUN/Creatinine Ratio 21, Glucose Level 193, Calcium Level 9.1, Corrected Calcium 9.3, Total Bilirubin 0.4, Aspartate Amino Transf (AST/SGOT) 12, Alanine Aminotransferase (ALT/SGPT) 19, Alkaline Phosphatase 56, Total Protein 7.6, Albumin 3.7 11/14/21 11:14: Glucometer 282 11/14/21 15:45: Glucometer 235 11/14/21 20:38: Glucometer 222 11/15/21 05:22: Glucometer 176 11/15/21 05:36: White Blood Count 6.6, Red Blood Count 4.61, Hemoglobin 12.2, Hematocrit 40, Mean Corpuscular Volume 86, Mean Corpuscular Hemoglobin 27, Mean Corpuscular Hemoglobin Concent 31, Red Cell Distribution Width 14.3, Platelet Count 265, Mean Platelet Volume 10.7, Immature Granulocyte % (Auto) 1, Neutrophils (%) (Auto) 75, Lymphocytes (%) (Auto) 15, Monocytes (%) (Auto) 9, Eosinophils (%) (Auto) 1, Basophils (%) (Auto) 0, Neutrophils # (Auto) 4.9, Lymphocytes # (Auto) 1.0, Monocytes # (Auto) 0.6, Eosinophils # (Auto) 0.1, Basophils # (Auto) 0.0, Immature Granulocyte # (Auto) 0.0, Prothrombin Time 17.3, INR Comment 1.4, So dium Level 138, Potassium Level 4.0, Chloride Level 98, Carbon Dioxide Level 31, Anion Gap 9, Blood Urea Nitrogen 20, Creatinine 0.82, Estimat Glomerular Filtration Rate 96, BUN/Creatinine Ratio 24, Glucose Level 191, Calcium Level 8.8, Corrected Calcium 9.2, Total Bilirubin 0.3, Aspartate Amino Transf (AST/SGOT) 14, Alanine Aminotransferase (ALT/SGPT) 19, Alkaline Phosphatase 46, Total Protein 6.9, Albumin 3.5 11/15/21 11:24: Glucometer 280 Discharge Home Medications: Active Scripts Active Cefdinir 300 Mg Capsule 300 Mg PO BID Dexamethasone 6 Mg Tablet 6 Mg PO DAILY@0700 Reported Warfarin Sodium 7.5 Mg Tablet 7.5 Mg PO HS TAKES 1MG +7.5MG TOGETHER TO EQUAL 8.5MG Warfarin Sodium 1 Mg Tablet 1 Mg PO HS TAKES 1MG +7.5MG TOGETHER TO EQUAL 8.5MG Ventolin Hfa (Albuterol Sulfate) 18 Gm Hfa.aer.ad 2 Puff INH Q6H PRN Terazosin HCl 1 Mg Capsule 1 Mg PO HS Triamterene-Hctz 37.5-25 mg Tb (Triamterene/Hydrochlorothiazid) 1 Each Tablet 1 Each PO DAILY Lisinopril 40 Mg Tablet 40 Mg PO HS Amlodipine Besylate 10 Mg Tablet 10 Mg PO HS Janumet Xr 50-1,000 mg Tablet (Sitagliptin Phos/Metformin HCl) 1 Each Tbmp.24hr 2 Each PO HS Aspirin 325 Mg Tablet 325 Mg PO DAILY Pravastatin Sodium 20 Mg Tablet 20 Mg PO HS Glipizide 10 Mg Tablet 10 Mg PO DAILY Instructions to patient/family Please see electronic discharge instructions given to patient. KATY DON DO Nov 15, 2021 10:52
--- NOTE | 2021-11-15 11:05 | Occupational Ther Daily Note ---
OT Current Status-Daily Note Subjective Pt denies pain, reports possibility of discharge later today. Appearance Left sitting in recliner, all needs within reach at OT departure. ADL-Treatment Therapy Code Descriptions/Definitions Functional [place] Measure: 0=Not Assessed/NA 4=Minimal Assistance 1=Total Assistance 5=Supervision or Setup 2=Maximal Assistance 6=Modified [place] 3=Moderate Assistance 7=Complete IndependenceSCALE: Activities may be completed with or without assistive devices. 0-[id number] completes the activity by him/herself with no assistance from a helper. 5-Set-up or Clean-up Assistance-helper sets up or cleans up; patient completes activity. Success assists only prior to or following the activity. 4-Supervision or Touching Assistance-helper provides verbal cues and/or touching/steadying and/or contact guard assistance as patient completes activity. Assistance may be provided throughout the activity or intermittently. 3-Partial/Moderate Assistance-helper does LESS THAN HALF the effort. Success lifts, holds or supports trunk or limbs, but provides less than half the effort. 2-Substantial/Maximal Assistance-helper does MORE THAN HALF the effort. Success lifts or holds trunk or limbs and provides more than half the effort. 3-Jpjlgqkjt-xfvxka does ALL the effort. Patient does none of the effort to complete the activity. Or, the assistance of 2 or more helpers is required for the patient to complete the activity. If activity was not attempted, code reason: 7-Patient Refused. 9-Not Applicable-not attempted and the patient did not perform the activity be fore the current illness, exacerbation or injury. 10-Not Attempted due to Environmental Limitations-(lack of equipment, weather restraints, etc.). 88-Not Attempted due to Medical Conditions or Safety Concerns. Lower Body Dressing (QC): 5 Toileting Hygiene (QC): 6 Toilet Transfer (QC): 6 Pt sitting on commode at OT arrival. He appeared to have missed the commode and urinated all over the floor. Assist to clean up, housekeeping notified for tho rough cleaning. He was able to stand, manage clothing over hips, and ambulate back to chair without assist. No unsteadiness observed this date. Cues for safety and ensuring he did not step in the urine. Education OT Patient Education: Progress toward Goal/Update tx plan, Purpose of tx/functional activities, Safety issues Teaching Recipient: Patient Teaching Methods: Discussion Response to Teaching: Verbalize Understanding OT [employer] Assistant Goals Commercial [employer] Assistant Goals Time Frame: Nov 23, 2021 Oral Hygiene (QC): 5 Toileting Hygiene (QC): 4 Upper Body Dressing (QC): 4 Lower Body Dressing (QC): 4 (SBA) 1=Demonstrate adherence to instructed precautions during ADL tasks. 2=Patient will verbalize/demonstrate understanding of assistive devices/modifications for ADL. 3=Patient will improve strength/tolerance for activity to enable patient to perform ADL's. OT Education/Plan Problem List/Assessment Assessment: No Skilled OT Needs ID'd (baseline with adls) Discharge Recommendations Plan/Recommendations: Discharge/Goals Met Therapy Discharge Recommendati: Home & Family Treatment Plan/Plan of Care Treatment,Training & Education: Yes Patient would benefit from OT for education, treatment and training to promote independence in ADL's, mobility, safety and/or upper extremity function for ADL's. Plan of Care: ADL Retraining, Caregiver Training, Functional Mobility, Group Exercise/Act as Ind, UE Funct Exercise/Act Treatment Duration: Nov 23, 2021 Frequency: 3 times per week (3-5x/week) Estimated Hrs Per Day: .25 hour per day Agreement: Yes Rehab Potential: Good Time/GCodes Start Time: 10:40 Stop Time: 10:48 Total Time Billed (hr/min): 8 Billed Treatment Time 1 visit Iman Doll OT Nov 15, 2021 11:05
[2021-11-15 15:30] VITALS: BP 152/93
== END 2021-11-15 15:30 | disposition home or self-care (01) | DRG 193 ==
LOC: ICU 11-11 00:46 → 4TH 11-12 14:47
PROVIDERS: ADMIT Internal Medicine; ATTEND Internal Medicine
PROC: 5A09457 Assistance with Respiratory Ventilation, 24-96 Consecutive Hours, Continuous Positive Airway Pressure (ICD-10-PCS; principal; 2021-11-11)
DX: J18.9 Pneumonia, unspecified organism (principal); J96.01 Acute respiratory failure with hypoxia; J96.02 Acute respiratory failure with hypercapnia; J44.1 Chronic obstructive pulmonary disease with (acute) exacerbation; J44.0 Chronic obstructive pulmonary disease with (acute) lower respiratory infection; Z20.822 Contact with and (suspected) exposure to COVID-19; E11.9 Type 2 diabetes mellitus without complications; I10 Essential (primary) hypertension; E78.00 Pure hypercholesterolemia, unspecified; N40.0 Benign prostatic hyperplasia without lower urinary tract symptoms; Z79.4 Long term (current) use of insulin; Z79.899 Other long term (current) drug therapy; G47.33 Obstructive sleep apnea (adult) (pediatric); R53.81 Other malaise
CPT/HCPCS: 36415; 36600; 71045; 80053; 82805; 82947; 83605; 83735; 84100; 85007; 85025; 85027; 85379; 85610; 94640; 94660; 94760; 94761